=== PATIENT | female | born 1960 | race Hispanic/Latino ===

== ENCOUNTER 2017-09-02 18:24 | Inpatient (IN) | payer MEDICARE, OTHER ==
[2017-09-02 18:38] VITALS: BMI 25.4
[2017-09-02] MEDS ORDERED: Sodium Chloride 0.9% 500 ML IV STA (18:38)
--- NOTE | 2017-09-02 18:38 | ED PDOC ---
Arrival/HPI - General Chief Complaint: Altered Mental Status Time Seen by Provider: 09/02/17 18:33 Historian: EMS, Other (Roommate) EM Caveat: Altered Mental Status - History of Present Illness Narrative History of Present Illness (Text): 09/02/17 18:35 Patient is a 57 year old female who was brought to the emergency department by EMS for altered mental status. Patient is currently a poor historian and history is provided by EMS and patient's roommate, Katherine?. Roommate reports last witnessing patient at her baseline self yesterday morning. Roommate heard some moaning and groaning yesterday at 17:00, but thought patient was having a toothache and left her be. This morning patient was found still in bed with occasional moaning. In the afternoon patient was found on the floor, altered, and not herself. EMS arrived to the patient's sitting on the floor, and found her to be behaving/acting strangely, picking at wire, and exhibiting nonsensical behavior. She was also found to have low BP (80/40s). Patient is currently only oriented to her name and is unable to provide further information. She is brought to the emergency department for further evaluation. NO pain, no sob, ? vomiting is noted; no gross bleeding is noted at pt's home as per EMS report + slurr speech noted from patient PCP: Dr wilson pt lives with her roommate - Katherine pt is right hand dominate Time/Duration: Prior to Arrival Symptom Onset: Sudden Symptom Course: Unchanged Activities at Onset: Rest Context: Home Past Medical History - Provider Review Nursing Documentation Reviewed: Yes - Travel History Have you recently traveled outside [place] w/in the past 3 mons?: No - Past History Past History: Non-Contributing - Infectious Disease Hx of Infectious Diseases: None - Tetanus Immunization Tetanus Immunization: Unknown - Reproductive Menopause: Yes Currently : No - Cardiac Hx Pacemaker: No - Neurological Hx Dizziness: Yes Hx Paralysis: No - Hematological/Oncological Hx Blood Transfusions: No - Musculoskeletal/Rheumatological Hx Musculoskeletal Disorders: No - Psychiatric Hx Anxiety: Yes Hx Depression: Yes Hx Substance Use: No - Surgical History Other/Comment: fibroid tumor removal. - Anesthesia Hx Anesthesia: Yes Hx Anesthesia Reactions: No Hx Malignant Hyperthermia: No - Suicidal Assessment Feels Threatened In Home Enviroment: No Family/Social History - Physician Review Nursing Documentation Reviewed: Yes Family/Social History: No Known Family HX Smoking Status: Never Smoked Hx Alcohol Use: No Hx Substance Use: No Hx Substance Use Treatment: No Allergies/Home Meds Allergies/Adverse Reactions: Allergies latex Allergy (Verified 02/28/16 11:46) SWELLING Home Medications: Home Meds Medication Instructions Recorded Confirmed Pravastatin Sodium [Pravastatin] 20 mg PO DAILY 01/12/14 08/24/14 QUEtiapine [SEROquel] 50 mg PO DAILY 01/12/14 08/24/14 Venlafaxine [Effexor-XR] 100 mg PO DAILY 02/28/16 02/28/16 clonazePAM [clonAZEPAM] 1 mg PO BID 02/28/16 02/28/16 Review of Systems - Review of Systems Systems not reviewed;Unavailable: Altered Mental Status Constitutional: Fatigue. absent: Fevers Eyes: Normal ENT: Normal Respiratory: absent: SOB Cardiovascular: absent: Chest Pain Gastrointestinal: Vomiting Genitourinary Female: Normal Neurological: Speech Changes, Other (AMS; slurr speech) Physical Exam - Physical Exam Narrative Physical Exam (Text): 09/02/17 18:44 General: alert/awake, GCS = 15, oriented x 2 (not to date/time), resting in bed , uncomfortable, cooperative, interactive; NAD (not to pain); disheveled, noted dry vomitus on her hair; + smell of UTI Head: NC/AT; bi-temporal wasting EYE: PERRLA, EOMI, sclera anicteric, no nystagmus, no photophobia; visual field intact b/l Facial: WNL Oral: uvula/tongue are midline, no exudate/lesions, no drooling/stridor, no dysphonia; poor dentitions; DRY oral mucosa NECK: intact ROM, no midline tenderness, no nuchal rigidity, no meningeal signs ; no step off Chest: CTA b/l, no w/r/r; no tachypenia, no accessory muscle use noted Cardiac: +S1, +S2, no m/r/r, no tachycardia Abdominal: +BS, soft/nd/nt, well nourished patient; no masses/rebound/guarding/ rigidity; no chung's sign, no mcburney's point tenderness Extremities: intact ROM, strength 5/5 grossly intact in all limbs, neurovasc intact b/l; + ambulatory; reflex +2/2 BACK: no step off, no midline tenderness, NO crepitus, no gross deformities noted; Intact ROM SKIN: cap refill ~ 1 sec, no ulcerations, no petechiae, no rashes; + pallor NEURO: CNII-XII WNL, no facial asymmetries, + slurr speech, oriented x 2 Psych: normal affect; follows command with ease Physical Exam Limitations: Altered Mental Status Vital Signs Reviewed: Yes Vital Signs Temp Pulse Resp BP Pulse Ox 09/02/17 19:06 97.3 F L 88 18 141/78 96 Temperature: Hypothermic Blood Pressure: Hypertensive Pulse: Regular Respiratory Rate: Normal Appearance: Positive for: Ill-Appearing, Unkept, Uncomfortable Mental Status: Positive for: other (alert/awake, Oriented x 2 (not to date/time) ) Finger Stick Blood Glucose: 109 - Systems Exam Head: Present: Atraumatic, Normocephalic Medical Decision Making ED Course and Treatment: 09/02/17 18:36 Impression: Patient is a 57 year old female who was brought to the emergency department by EMS for further evaluation of her altered mental status. Differential Diagnosis included but are not limited to: metabolic encephalopathy; CVA vs TIA; weakness; dehydration; infection; rhabdo Plan: --CTA of head and neck --Head CT without contrast --Chest X-ray --EKG --labs --cardiac enzyme --IV fluids --Zofran -- Reassess and disposition Prior Visits: Notes and results from previous visits were reviewed. Progress Notes: 09/02/17 18:32 Code Stroke Alert called/activated 09/02/17 18:34 Discussed case with regarding patient's medical presentation. Suggest that patient most likely has a non-neurologic caused pathology. Will withhold TPA until CT is obtained and will continue to monitor. 09/02/17 19:32 contacted me regarding and is made aware of initial diagnostic lab results including CT. Patient IS NOT a candidate for TPA given symptoms are greater than 24 hours. Toxic metabolic encephalopathy instead of TIA or CVA as primary diagnosis. Will continue to monitor patient as patient is admitted to the hospital. 09/02/17 19:45 Paging . Awaiting response. 09/02/17 20:06 Discussed case with who is made aware and agrees with emergency department management. agrees to admission of patient to telemetry floor. 09/02/17 2030 pt remained at baseline currently, oriented x 2 pt/roommate are made aware of pt's medical results agrees with admission Re-evaluation Time: 20:00 Reassessment Condition: Improving,but remains with symptoms - Critical Care Critical Care Minutes: 60 minutes Critical Care Time: Excluding Proc Time Narrative Critical Care (Text): 09/02/17 21:16 critical care time: 60min, excluding procedure time, excluding time teaching residents/students/mid-level providers; including initial eval/diagnosis, diagnostic interpretation, re-eval, consultations, final disposition - Lab Interpretations Lab Results: 09/02/17 18:46 09/02/17 18:46 Lab Results 09/02/17 20:04: Blood Type B POSITIVE, Antibody Screen Negative, BBK History Checked Patient has bt 09/02/17 19:45: pO2 67 H, VBG pH 7.30 L, VBG pCO2 42.0, VBG HCO3 20.7 L, VBG Total CO2 22.0, VBG O2 Sat (Calc) 95.7 H, VBG Base Excess -5.5 L, VBG Potassium 3.8, Glucose 102, Lactate 2.8 H, FiO2 21.0, Sodium 141.0, Chloride 111.0 H, Venous Blood Potassium 3.8 09/02/17 18:46: Salicylates < 1 L, Acetaminophen < 10.0 L 09/02/17 18:46: TSH 3rd Generation 1.87 09/02/17 18:46: Ammonia < 9 L 09/02/17 18:46: Sodium 147, Potassium 4.1, Chloride 107, Carbon Dioxide 22, Anion Gap 22 H, BUN 17, Creatinine 0.9, Est GFR ( Amer) > 60, Est GFR ( Non-Af Amer) > 60, Random Glucose 107, Calcium 9.5, Total Bilirubin 0.2, AST 76 H, ALT 32, Alkaline Phosphatase 83, Total Creatine Kinase 1971 H, CK-MB (CK-2) 30.3 H, CK-MB (CK-2) % 1.5 L, Troponin I < 0.01, NT-Pro-B Natriuret Pep 121, Total Protein 7.6, Albumin 4.2, Globulin 3.4, Albumin/Globulin Ratio 1.3, Triglycerides 56, Cholesterol 133, LDL Cholesterol Direct 44, HDL Cholesterol 70 H 09/02/17 18:46: PT 12.6 H, INR 1.10 H, APTT 33.3 09/02/17 18:46: WBC 19.7 H D, RBC 4.23, Hgb 10.8 L, Hct 33.9 L, MCV 80.1, MCH 25.5, MCHC 31.9, RDW 14.2, Plt Count 256, MPV 10.7, Gran % 93.3 H, Lymph % (Auto ) 2.2 L, [place] % (Auto) 4.2, Eos % (Auto) 0.2 L, Baso % (Auto) 0.1, Gran # 18.36 H, Lymph # (Auto) 0.4 L, [place] # (Auto) 0.8 H, Eos # (Auto) 0.0, Baso # (Auto) 0.02, Neutrophils % (Manual) 90 H, Band Neutrophils % 5 H, Lymphocytes % (Manual ) 2 L, Monocytes % (Manual) 3, Platelet Evaluation Normal I have reviewed the lab results: Yes Interpretation: Abnormal lab values (elevated WBCs, lactic acid; Total CK) - RAD Interpretation Narrative RAD Interpretations (Text): 09/02/17 19:58 Portable chest X-ray shows poor respiratory effort rotated. Questionable pulmonary vascular congestion. Pelvis X-ray shows no acute fractures or dislocations. 09/02/17 CT Head Without Intravenous Contrast: FINDINGS: Brain: Mild volume loss is seen in keeping with age. Mild decrease in attenuation of the periventricular white matter likely related to small vessel ischemic change. The brain otherwise with normal chino-white matter differentiation, demonstrating no edema, mass effect, acute hemorrhage, or focal mass. Ventricles: Unremarkable. No ventriculomegaly. Bones/joints: Unremarkable. No acute fracture. Soft tissues: Unremarkable. Sinuses: Unremarkable as visualized. No acute sinusitis. Mastoid air cells: Unremarkable as visualized. No mastoid effusion. IMPRESSION: There is mild atrophy and chronic white matter ischemic changes, with no evidence of an acute intracranial abnormality. Dictated and Authenticated by: Vish Boggs MD Radiology Orders: 09/02/17 18:36 CTA HEAD/NECK CODE STROKE [CT] Stat HEAD W/O (CODE STROKE) [CT] Stat CHEST PORTABLE [RAD] Stat 09/02/17 18:39 PELVIS ONE VIEW [RAD] Stat Hospital Clinic Assistant: ED Physician, Radiologist - EKG Interpretation EKG Interpretation (Text): 09/02/17 21:19 NSR at 95 bpm, normal axis, no ectopy, diffuse low voltage inferior leads, inverted T in leads V1-4, no st changes, ABNL EKG; unchanged compare with old ekg 08/2014 Interpreted by ED Physician: Yes Type: 12 lead EKG Comparison: Similar to previous EKG - Medication Orders Current Medication Orders: Sodium Chloride (Sodium Chloride 0.9%) 1,000 mls @ 100 mls/hr IV .Q10H [facility] Last Admin: 09/02/17 20:19 Dose: 100 mls/hr eMAR Start Stop Document 09/02/17 20:19 SF (Rec: 09/02/17 20:19 [facility]-[id number]) Intravenous Solution Start Date 09/02/17 Start Time 20:19 Discontinued Medications Sodium Chloride (Sodium Chloride 0.9%) 500 mls @ 999 mls/hr IV .Q31M STA Stop: 09/02/17 19:08 Last Admin: 09/02/17 20:22 Dose: 999 mls/hr eMAR Start Stop Document 09/02/17 20:22 SF (Rec: 09/02/17 20:22 [facility] [place]-[id number]) Intravenous Solution Start Date 09/02/17 Start Time 20:22 End Date 09/02/17 End time 20:52 Total Infusion Time 30 Ceftriaxone Sodium (Rocephin 1 Gram Ivpb) 1 gm in 100 mls @ 200 mls/hr IVPB STAT STA PRN Reason: Protocol Stop: 09/02/17 20:06 Last Admin: 09/02/17 19:59 Dose: 200 mls/hr eMAR Start Stop Document 09/02/17 19:59 CNR (Rec: 09/02/17 19:59 CNR [id number]) Intravenous Solution Start Date 09/02/17 Start Time 19:59 End Date 09/02/17 End time 20:30 Total Infusion Time 31 Sodium Chloride (Sodium Chloride 0.9%) 1,000 mls @ 999 mls/hr IV .Q1H1M STA Stop: 09/02/17 20:45 Last Admin: 09/02/17 20:02 Dose: 999 mls/hr eMAR Start Stop Document 09/02/17 20:02 CNR (Rec: 09/02/17 20:02 CNR [id number]) Intravenous Solution Start Date 09/02/17 Start Time 20:02 Ondansetron HCl (Zofran Inj) 4 mg IVP STAT STA Stop: 09/02/17 18:42 Last Admin: 09/02/17 20:02 Dose: 4 mg IVP Administration Document 09/02/17 20:02 CNR (Rec: 09/02/17 20:02 CNR [id number]) Charges for Administration # of IVP Administrations 1 NIHSS Scale ([place]) Time Performed: 18:55 - How Severe is the Stoke Baseline Level of Consciousness: 1=Drowsy LOC to Questions: 0=Both comments correct LOC to commands: 0=Obeys both correctly Best Gaze: 0=Normal Visual: 0=No visual loss Facial: 0=Normal Motor Arm - Left: 1=Drift noted before 10 sec Motor Arm - Right: 1=Drift noted before 10 sec Motor Leg - Left: 1=Drift before 5 sec Motor Leg - Right: 1=Drift before 5 sec Limb Ataxia: 0=Absent Sensory: 0=Normal Best Language: 1=Mild to moderate aphasia Dysarthia: 1=Mild to moderate slurring Extinction & Inattention (Neglect): 0=Normal, no object Score: 7 Risk Level: Mod Stroke Risk - Scribe Statement The provider has reviewed the documentation as recorded by the Scribhailey Dejesus Provider Scribe Attestation: All medical record entries made by the Scribe were at my direction and personally dictated by me. I have reviewed the chart and agree that the record accurately reflects my personal performance of the history, physical exam, medical decision making, and the department course for this patient. I have also personally directed, reviewed, and agree with the discharge instructions and disposition. Disposition/Present on Arrival - Present on Arrival Any Indicators Present on Arrival: No History of DVT/PE: No History of Uncontrolled Diabetes: No Urinary Catheter: No History of Decub. Ulcer: No History Surgical Site Infection Following: None - Disposition Have Diagnosis and Disposition been Completed?: Yes Diagnosis: Altered mental status, unspecified, UTI (urinary tract infection), Dehydration , Rhabdomyolysis, Fall, Encephalopathy Disposition: HOSPITALIZED Disposition Time: 20:30 Patient Plan: Admission, Telemetry Condition: STABLE
[2017-09-02] MEDS ORDERED: Iohexol 350 MG/100 ML VIAL ONE (18:44)
[2017-09-02 18:53] LABS: BASO # 0.02 K/mm3 (0.0-2.0); BASO % 0.1 % (0.0-3.0); EOS % 0.2 % (1.5-5.0); GRAN # 18.36 (1.4-6.5); GRAN % 93.3 % (50.0-68.0); HEMOGLOBIN 10.8 g/dL (12.0-16.0); LYMPH # 0.4 (1.2-3.4); LYMPH % 2.2 % (22.0-35.0); MEAN CELL VOLUME 80.1 fl (80.0-105.0); MEAN CORPUSCULAR HEMOGLOBIN 25.5 pg (25.0-35.0); MEAN CORPUSCULAR HGB CONC 31.9 g/dl (31.0-37.0); MEAN PLATELET VOLUME 10.7 fl (7.0-11.0); MONO # 0.8 (0.1-0.6); MONO % 4.2 % (1.0-6.0); PLATELET COUNT 256 10^3/uL (120.0-450.0); RBC 4.23 10^6/uL (3.5-6.1); RED CELL DISTRIBUTION WIDTH 14.2 % (11.5-14.5); WHITE BLOOD COUNT 19.7 10^3/ul (4.5-11.0)
[2017-09-02 19:02] LABS: INR 1.1 (0.93-1.08); PARTIAL THROMBOPLASTIN TIME 33.3 Seconds (25.1-36.5); PROTHROMBIN TIME 12.6 SECONDS (9.4-12.5)
--- NOTE | 2017-09-02 19:02 | CT ---
PROCEDURE: CT HEAD WITHOUT CONTRAST. HISTORY: Code Stroke COMPARISON: None available. TECHNIQUE: Axial computed tomography images were obtained through the head/brain without intravenous contrast. Radiation dose: Total exam DLP = 942.21 mGy-cm. This CT exam was performed using one or more of the following dose reduction techniques: Automated exposure control, adjustment of the mA and/or kV according to patient size, and/or use of iterative reconstruction technique. FINDINGS: HEMORRHAGE: No intracranial hemorrhage. BRAIN: Normal chino-white matter differentiation and density are appreciated throughout the cerebrum and cerebellum with the brainstem appearing unremarkable as well. There is no mass effect. There is no suspicious extra-axial fluid collection and the midline brain anatomy appears diffusely unremarkable. No signal change para CTA 08/24/2014. VENTRICLES: Unremarkable. No hydrocephalus. CALVARIUM: Unremarkable. PARANASAL SINUSES: Unremarkable as visualized. No significant inflammatory changes. MASTOID AIR CELLS: Unremarkable as visualized. No inflammatory changes. OTHER FINDINGS: None. IMPRESSION: Unremarkable noncontrast head CT. Follow-up CT or MRI are available if clinically warranted. Findings discussed with Dr. Parkinson 09/02/2017 6:57 p.m. with written down and read back verification.
[2017-09-02 19:10] LABS: ALB/GLOB RATIO 1.3 (1.1-1.8); ALBUMIN 4.2 g/dL (3.0-4.8); ALT/SGPT 32 U/L (7-56); AST/SGOT 76 U/L (14-36); BLOOD UREA NITROGEN 17 mg/dL (7-21); CALCIUM 9.5 mg/dL (8.4-10.5); GFR AFRICAN-AMERICAN > 60; GFR NON-AFRICAN AMERICAN > 60; HDL CHOLESTEROL 70 mg/dL (29-60)
[2017-09-02 19:11] LABS: ACETAMINOPHEN < 10.0 ug/ml (10.0-20.0); SALICYLATE < 1 mg/dL (2.0-20.0)
[2017-09-02 19:21] LABS: LDL CHOLESTEROL 44 mg/dL (0-129)
[2017-09-02 19:24] LABS: B-TYPE NATRIURETIC PEPTIDE 121 pg/mL (0-450); TROPONIN I < 0.01 ng/mL
[2017-09-02] MEDS ORDERED: cefTRIAXone 1 gm 1 GM/100 ML BAG IVPB STA (19:37)
[2017-09-02] MEDS ORDERED: Sodium Chloride 0.9% 1,000 ML IV STA (19:45)
[2017-09-02 19:56] LABS: VENOUS BLOOD GAS BASE EXCESS -5.5 mmol/L (0.0-2.0); VENOUS BLOOD GAS PO2 67 mm/Hg (30-55)
[2017-09-02 20:10] LABS: BAND 5 % (0-2); LYMPHOCYTE 2 % (22.0-35.0); MONOCYTE 3 % (1.0-6.0); NEUTROPHIL 90 % (50.0-70.0)
[2017-09-02 20:11] LABS: PLATELET ESTIMATE NORMAL (NORMAL)
[2017-09-02] MEDS: Sodium Chloride 0.9% 1,000 ML IV SCH (20:19)
[2017-09-02 20:34] LABS: CK MB% 1.5 % (2.5-3.0); CK-MB 30.3 ng/mL (0.0-3.6)
[2017-09-02] MEDS: Cefepime 1gm in NS 100ml 1 GM/100 ML BAG IVPB SCH (22:10)
[2017-09-02] MEDS ORDERED: DiphenhydrAMINE 50 mg/ml Inj ONE (23:42)
[2017-09-02] MEDS ORDERED: DiphenhydrAMINE 50 mg/ml Inj IVP STA (23:47)
[2017-09-03 00:10] LABS: VENOUS BLOOD GAS PO2 29 mm/Hg (30-55); VENOUS BLOOD PH 7.29 (7.32-7.43)
[2017-09-03 01:02] LABS: PHENCYCLIDINE, UR NEGATIVE (NEGATIVE)
[2017-09-03 01:13] LABS: URINE BILIRUBIN NEGATIVE (NEGATIVE); URINE BLOOD NEGATIVE (NEGATIVE); URINE GLUCOSE (UA) NEGATIVE (NEGATIVE); URINE LEUKOCYTE ESTERASE NEGATIVE Leu/uL (NEGATIVE); URINE PROTEIN TRACE mg/dL (<30 mg/dL); URINE UROBILINOGEN 0.2 E.U./dL (<1 E.U./dL)
[2017-09-03 01:14] LABS: URINE COLOR YELLOW (YELLOW)
[2017-09-03 01:15] LABS: URINE APPEARANCE SLIGHT-CLOUDY (CLEAR)
[2017-09-03 01:25] LABS: BARBITURATES, UR NEGATIVE (NEGATIVE); BENZODIAZEPINES, UR POSITIVE (NEGATIVE); OPIATES, UR NEGATIVE (NEGATIVE)
[2017-09-03 01:29] LABS: URINE RBC NEGATIVE /hpf (0-2); URINE WBC NEGATIVE /hpf (0-6)
[2017-09-03 01:30] LABS: URINE BACTERIA MOD (NEG)
[2017-09-03] MEDS: Pantoprazole 40 mg EC Tab PO SCH (06:06)
[2017-09-03 07:11] LABS: BASO # 0.03 K/mm3 (0.0-2.0); BASO % 0.2 % (0.0-3.0); EOS # 0.3 (0.0-0.7); EOS % 1.4 % (1.5-5.0); GRAN # 16.38 (1.4-6.5); GRAN % 89.3 % (50.0-68.0); HEMOGLOBIN 9.1 g/dL (12.0-16.0); LYMPH # 0.9 (1.2-3.4); LYMPH % 4.9 % (22.0-35.0); MEAN CELL VOLUME 79.9 fl (80.0-105.0); MEAN CORPUSCULAR HEMOGLOBIN 25.3 pg (25.0-35.0); MEAN CORPUSCULAR HGB CONC 31.7 g/dl (31.0-37.0); MEAN PLATELET VOLUME 10.7 fl (7.0-11.0); MONO # 0.8 (0.1-0.6); MONO % 4.2 % (1.0-6.0); RBC 3.59 10^6/uL (3.5-6.1); RED CELL DISTRIBUTION WIDTH 14.2 % (11.5-14.5); WHITE BLOOD COUNT 18.3 10^3/ul (4.5-11.0)
[2017-09-03 07:36] LABS: ALB/GLOB RATIO 1.1 (1.1-1.8); ALBUMIN 3.4 g/dL (3.0-4.8); ALT/SGPT 33 U/L (7-56); AST/SGOT 62 U/L (14-36); BLOOD UREA NITROGEN 13 mg/dL (7-21); CALCIUM 8.5 mg/dL (8.4-10.5); GFR AFRICAN-AMERICAN > 60; GFR NON-AFRICAN AMERICAN > 60
--- NOTE | 2017-09-03 08:38 | HP ---
HISTORY OF PRESENT ILLNESS: The patient is 57 years old, who was brought to emergency room by ambulance when her hogshead dumper who saw her last night and in good state of health, found her confused, disoriented, and she was found on the floor. She called the ambulance and was brought to emergency room. She has not been feeling well for the last few days and poor appetite. Does complain of having low-grade fever, decreased appetite. PAST MEDICAL HISTORY: 1. Significant for anxiety disorder. 2. Hyperlipidemia. 3. Chronic back pain. 4. Left hepatic cyst. The patient is done by Dr. Bocanegra in 12/2013 and was found to be normal. ALLERGIES: SHE IS ALLERGIC TO LATEX. MEDICATIONS AT HOME: She is on Klonopin 1 mg twice a day, Effexor 100 mg daily, Seroquel 50 mg daily, pravastatin 20 mg daily, naproxen 500 mg twice a day, Tylenol with Codeine. SOCIAL HISTORY: The patient lives by herself. History of smoking in the past. PHYSICAL EXAMINATION GENERAL: On examination, she is awake, alert, but confused. VITAL SIGNS: She is afebrile, pulse 80, respirations 19, blood pressure 110/63. LUNGS: Bilateral fair airflow. No rhonchi or crackle. HEART: S1 and S2 audible. No murmur. ABDOMEN: Soft. Nontender. No rebound. No guarding. NEUROLOGICAL: The patient is awake and alert, but confused, answers simple questions. LABORATORY EXAM: WBC is 19.7, hemoglobin 10.8, hematocrit 33.9, platelet 256. PT 12.6, INR 1.10. Chemistry: Sodium 147, potassium 4.1, chloride 107, CO2 of 22, BUN 17, creatinine 0.9, blood sugar 107. AST 76, ALT 62, ammonia less than . CPK is 1971, MB is 1.5. Salicylate less than 1. Acetaminophen less than . . ASSESSMENT AND PLAN: 1. Sepsis with leukocytosis, probably urinary tract infection. 2. Rhabdomyolysis. 3. Status post fall. 4. History of seizure disorder. 5. Hyperlipidemia. 6. Toxic metabolic encephalopathy. PLAN: We will start the patient on IV fluid, start IV antibiotic, follow blood culture and urine culture and we will follow up electrolytes. Follow the patient in a.m. El Salazar MD [facility] # [id number]
[2017-09-03] MEDS: Cefepime 1gm in NS 100ml 1 GM/100 ML BAG IVPB SCH ×2 (09:05→21:43)
[2017-09-03] MEDS ORDERED: Venlafaxine 37.5 mg ER Cap PO SCH (10:00)
[2017-09-03 12:40] LABS: HDL CHOLESTEROL 59 mg/dL (29-60)
[2017-09-03 12:55] LABS: LDL CHOLESTEROL 34 mg/dL (0-129)
--- NOTE | 2017-09-03 12:57 | RAD ---
HISTORY: Code Stroke COMPARISON: 12/27/2013 FINDINGS: LUNGS: No consolidation. Lung volumes low-normal Limited exam study rotated towards the right PLEURA: No significant pleural effusion identified, no pneumothorax apparent. CARDIOVASCULAR: Heart size within normal limits Minimal central pulmonary vascular congestion OSSEOUS STRUCTURES: No significant abnormalities. VISUALIZED UPPER ABDOMEN: Normal. OTHER FINDINGS: None. IMPRESSION: Minimal central pulmonary vascular congestion -an interval change
--- NOTE | 2017-09-03 13:03 | RAD ---
PROCEDURE: Radiographs of the pelvis. HISTORY: AMS, fall? COMPARISON: CT abdomen and pelvis 09/08/2015 FINDINGS: BONES: Pelvic Bones: Right sided sacral 2 cm bone island 12 mm bone island right iliac bone - unchanged the prior CT study Hips: Limited evaluation single view bilateral superolateral hip joint space narrowing JOINTS: Sacroiliac Joints: Unremarkable. Pubic Symphysis: Unremarkable. OTHER FINDINGS: Right sided Stool retention. IMPRESSION: Right sacral and right iliac bone bone islands benign-appearing stable with CT 09/08/2015 No lytic lesion or gross fracture seen. Portion of the hips is somewhat limited on this single pelvic view. At minimal bilateral osteoarthrosis is suggested.
--- NOTE | 2017-09-03 13:55 | CP.PCM.CON ---
History of Present Illness - History of Present Illness History of Present Illness: Mrs. Ferrera is a 57-year-old woman with a past medical history of seizure disorder, anxiety, who was found down by her roommate. She was brought to the ED. Labs showed leukocytosis, UTI, and elevated CK levels. She was hydrated and treated for possible infection. Today, she is much more alert, non-focal, fluent in speech, but remains somewhat confused. CT scan of the head did not show any acute findings. Review of Systems - Review of Systems All systems: reviewed and no additional remarkable complaints except Past Patient History - Infectious Disease Hx of Infectious Diseases: None - Tetanus Immunizations Tetanus Immunization: Unknown - Past Social History Smoking Status: Unknown If Ever Smoked - CARDIAC Hx Pacemaker: No - NEUROLOGICAL Hx Dizziness: Yes Hx Paralysis: No - HEMATOLOGICAL/ONCOLOGICAL Hx Blood Transfusions: No - MUSCULOSKELETAL/RHEUMATOLOGICAL Hx Falls: Yes (poor historian) - PSYCHIATRIC Hx Anxiety: Yes Hx Depression: Yes Hx Substance Use: No - SURGICAL HISTORY Other/Comment: unable to obtain, pt's mental status is altered. Poor historian - ANESTHESIA Hx Anesthesia: Yes Hx Anesthesia Reactions: No Hx Malignant Hyperthermia: No Meds Allergies/Adverse Reactions: Allergies Allergy/AdvReac Type Severity Reaction Status Date / Time latex Allergy SWELLING Verified 02/28/16 11:46 - Medications Medications: Current Medications Acetaminophen (Tylenol 325mg Tab) 650 mg PO Q6H PRN PRN Reason: Fever >100.4 F Atorvastatin Calcium (Lipitor) 40 mg PO DIN NGUYEN Clonazepam (Klonopin) 1 mg PO TID NGUYEN PRN Reason: Protocol Sodium Chloride (Sodium Chloride 0.9%) 1,000 mls @ 100 mls/hr IV .Q10H NGUYEN Last Admin: 09/02/17 20:19 Dose: 100 mls/hr Cefepime HCl (Maxipime 1gm) 1 gm in 100 mls @ 100 mls/hr IVPB Q12 NGUYEN PRN Reason: Protocol Last Admin: 09/03/17 09:05 Dose: 100 mls/hr Pantoprazole Sodium (Protonix Ec Tab) 40 mg PO 0630 NGUYEN Last Admin: 09/03/17 06:06 Dose: Not Given Quetiapine Fumarate (Seroquel) 300 mg PO DAILY NGUYEN PRN Reason: Protocol Last Admin: 09/03/17 11:37 Dose: 300 mg Venlafaxine HCl (Effexor) 75 mg PO BID [facility] Physical Exam - Neurological Exam Neurological exam: Abnormal Gait, Alert, Altered, CN II-XII Intact, Reflexes Normal Additional comments: NIHSS = 0 Results - Vital Signs Recent Vital Signs: Last Vital Signs Temp 97.5 F L 09/03/17 11:49 Pulse 105 H 09/03/17 11:49 Resp 24 09/03/17 11:49 BP 131/67 09/03/17 11:49 Pulse Ox 95 09/03/17 06:00 - Labs Result Diagrams: 09/03/17 06:30 09/03/17 06:30 Labs: Laboratory Results - last 24 hr 09/02/17 09/03/17 09/03/17 23:45 00:18 00:18 WBC RBC Hgb Hct MCV MCH MCHC RDW Plt Count MPV Gran % Lymph % (Auto) [place] % (Auto) Eos % (Auto) Baso % (Auto) Gran # Lymph # (Auto) [place] # (Auto) Eos # (Auto) Baso # (Auto) pO2 29 L VBG pH 7.29 L VBG pCO2 45.0 VBG HCO3 21.6 VBG Total CO2 23.0 VBG O2 Sat (Calc) 59.5 VBG Base Excess -5.0 L VBG Potassium 3.5 L Sodium 143.0 Chloride 116.0 H Glucose 86 Lactate 1.2 FiO2 21.0 Potassium Carbon Dioxide Anion Gap BUN Creatinine Est GFR ( Amer) Est GFR (Non-Af Amer) POC Glucose (mg/dL) Random Glucose Calcium Total Bilirubin AST ALT Alkaline Phosphatase Total Protein Albumin Globulin Albumin/Globulin Ratio Triglycerides Cholesterol LDL Cholesterol Direct HDL Cholesterol Venous Blood Potassium 3.5 L Urine Color Yellow Urine Appearance Slight-cloudy Urine pH 6.0 Ur Specific [place] >= 1.030 Urine Protein Trace H Urine Glucose (UA) Negative Urine Ketones Negative Urine Blood Negative Urine Nitrate Negative Urine Bilirubin Negative Urine Urobilinogen 0.2 Ur Leukocyte Esterase Negative Urine RBC Negative Urine WBC Negative Ur Epithelial Cells 3 - 4 Urine Bacteria Mod Urine Other Mucus Urine Opiates Screen Negative Urine Methadone Screen Negative Ur Barbiturates Screen Negative Ur Phencyclidine Scrn Negative Ur Amphetamines Screen Negative U Benzodiazepines Scrn Positive H U Oth Cocaine Metabols Negative U Cannabinoids Screen Negative 09/03/17 09/03/17 09/03/17 06:30 06:30 06:30 WBC 18.3 H RBC 3.59 Hgb 9.1 L Hct 28.7 L MCV 79.9 L MCH 25.3 MCHC 31.7 RDW 14.2 Plt Count 231 MPV 10.7 Gran % 89.3 H Lymph % (Auto) 4.9 L [place] % (Auto) 4.2 Eos % (Auto) 1.4 L Baso % (Auto) 0.2 Gran # 16.38 H Lymph # (Auto) 0.9 L [place] # (Auto) 0.8 H Eos # (Auto) 0.3 Baso # (Auto) 0.03 pO2 VBG pH VBG pCO2 VBG HCO3 VBG Total CO2 VBG O2 Sat (Calc) VBG Base Excess VBG Potassium Sodium 147 Chloride 113 H Glucose Lactate FiO2 Potassium 3.6 Carbon Dioxide 23 Anion Gap 15 BUN 13 Creatinine 0.8 Est GFR ( Amer) > 60 Est GFR (Non-Af Amer) > 60 POC Glucose (mg/dL) Random Glucose 80 Calcium 8.5 Total Bilirubin 0.3 AST 62 H ALT 33 Alkaline Phosphatase 71 Total Protein 6.5 Albumin 3.4 Globulin 3.0 Albumin/Globulin Ratio 1.1 Triglycerides 51 Cholesterol 117 L LDL Cholesterol Direct 34 HDL Cholesterol 59 Venous Blood Potassium Urine Color Urine Appearance Urine pH Ur Specific [place] Urine Protein Urine Glucose (UA) Urine Ketones Urine Blood Urine Nitrate Urine Bilirubin Urine Urobilinogen Ur Leukocyte Esterase Urine RBC Urine WBC Ur Epithelial Cells Urine Bacteria Urine Other Urine Opiates Screen Urine Methadone Screen Ur Barbiturates Screen Ur Phencyclidine Scrn Ur Amphetamines Screen U Benzodiazepines Scrn U Oth Cocaine Metabols U Cannabinoids Screen 09/03/17 07:06 WBC RBC Hgb Hct MCV MCH MCHC RDW Plt Count MPV Gran % Lymph % (Auto) [place] % (Auto) Eos % (Auto) Baso % (Auto) Gran # Lymph # (Auto) [place] # (Auto) Eos # (Auto) Baso # (Auto) pO2 VBG pH VBG pCO2 VBG HCO3 VBG Total CO2 VBG O2 Sat (Calc) VBG Base Excess VBG Potassium Sodium Chloride Glucose Lactate FiO2 Potassium Carbon Dioxide Anion Gap BUN Creatinine Est GFR ( Amer) Est GFR (Non-Af Amer) POC Glucose (mg/dL) 73 Random Glucose Calcium Total Bilirubin AST ALT Alkaline Phosphatase Total Protein Albumin Globulin Albumin/Globulin Ratio Triglycerides Cholesterol LDL Cholesterol Direct HDL Cholesterol Venous Blood Potassium Urine Color Urine Appearance Urine pH Ur Specific [place] Urine Protein Urine Glucose (UA) Urine Ketones Urine Blood Urine Nitrate Urine Bilirubin Urine Urobilinogen Ur Leukocyte Esterase Urine RBC Urine WBC Ur Epithelial Cells Urine Bacteria Urine Other Urine Opiates Screen Urine Methadone Screen Ur Barbiturates Screen Ur Phencyclidine Scrn Ur Amphetamines Screen U Benzodiazepines Scrn U Oth Cocaine Metabols U Cannabinoids Screen Assessment & Plan (1) Toxic metabolic encephalopathy Assessment and Plan: Continue hydration, antibiotics, treatment of underlying metabolic derangements and supportive care. Consider EEG if the patient does not improve in mental status. Please re-consult if there is any concern of seizure like activity. The patient is currently on Klonapin 1 mg TID, which is likely for anxiety, but it is also suppressing seizure activity. If this were to be changed, consider starting Keppra 500 mg BID since she does have a history of seizures. Thank you. Status: Acute Priority: Medium
--- NOTE | 2017-09-03 18:17 | PN ---
DATE: 09/03/2017 SUBJECTIVE: The patient is 57 years old, seen and examined, awake and alert, but totally confused, disoriented, mumbles, does not make sense, pulling on her bed sheet, in the bed. OBJECTIVE: VITAL SIGNS: She is afebrile, pulse 105, respirations 24, blood pressure 131/67. LUNGS: Bilateral fair airflow. No rhonchi or crackle. HEART: S1 and S2 audible. ABDOMEN: Soft. Nontender. No rebound, no guarding. NEUROLOGIC: The patient is awake and alert, but confused, disoriented. LABORATORY EXAM: WBC is 18.3, hemoglobin 9.1, hematocrit 28.7, and platelets of 231. Chemistry: Sodium 147, potassium 3.6, chloride 113, CO2 of 23. BUN 13, creatinine 0.8. Blood sugar of 73. Blood cultures and urine cultures are pending. ASSESSMENT: 1. Altered mental status. Urine drug screen positive for opiates. 2. Leukocytosis, source unknown. 3. History of anxiety disorder. PLAN: We will continue the patient on current antibiotic. We will request for psych consult and also request for neuro evaluation and also will request for ID consult. We will follow up with the patient in the a.m. El Salazar MD
[2017-09-03] MEDS: Sodium Chloride 0.9% 1,000 ML IV SCH (21:05)
[2017-09-03] MEDS ORDERED: Dextrose 50% SYRINGE Inj (50 ml) IVP ONE (21:20)
[2017-09-04] MEDS: Sodium Chloride 0.9% 1,000 ML IV SCH ×2 (00:45→10:04)
[2017-09-04] MEDS: Pantoprazole 40 mg EC Tab PO SCH (06:08)
[2017-09-04 08:04] LABS: BASO # 0.05 K/mm3 (0.0-2.0); BASO % 0.2 % (0.0-3.0); EOS # 0.4 (0.0-0.7); EOS % 1.7 % (1.5-5.0); GRAN # 18.72 (1.4-6.5); GRAN % 88.1 % (50.0-68.0); HEMOGLOBIN 9.5 g/dL (12.0-16.0); LYMPH # 1.2 (1.2-3.4); LYMPH % 5.8 % (22.0-35.0); MEAN CELL VOLUME 79.5 fl (80.0-105.0); MEAN CORPUSCULAR HEMOGLOBIN 25.3 pg (25.0-35.0); MEAN CORPUSCULAR HGB CONC 31.8 g/dl (31.0-37.0); MEAN PLATELET VOLUME 10.5 fl (7.0-11.0); MONO # 0.9 (0.1-0.6); MONO % 4.2 % (1.0-6.0); RBC 3.76 10^6/uL (3.5-6.1); RED CELL DISTRIBUTION WIDTH 14.2 % (11.5-14.5); WHITE BLOOD COUNT 21.3 10^3/ul (4.5-11.0)
[2017-09-04 08:16] LABS: ALB/GLOB RATIO 1.1 (1.1-1.8); ALBUMIN 3.8 g/dL (3.0-4.8); ALT/SGPT 41 U/L (7-56); AST/SGOT 61 U/L (14-36); BLOOD UREA NITROGEN 11 mg/dL (7-21); CALCIUM 8.9 mg/dL (8.4-10.5); GFR AFRICAN-AMERICAN > 60; GFR NON-AFRICAN AMERICAN > 60
[2017-09-04 08:30] LABS: FREE T4 0.86 ng/dL (0.78-2.19)
[2017-09-04] MEDS: Cefepime 1gm in NS 100ml 1 GM/100 ML BAG IVPB SCH (10:03)
--- NOTE | 2017-09-04 12:38 | CP.PCM.CON ---
History of Present Illness - History of Present Illness History of Present Illness: 57 year old female with PMH of anxiety and depression, S/P fibroid removal came in to [facility] [place] she was brought in to [facility] [place] because of the patient was apparently noted to be on the floor and not behaving like herself. The patient currently is awake and alert but confused. Thre was note of loweblood pressure in the ED, but note of fevers. She was noted to have leukocytosis. It is unsure if the patient had seizures. Further ROS is unobtainable because of the patient's confusion. Infectious diseases consult is requested to further evaluate and manage. Review of Systems - Review of Systems All systems: reviewed and no additional remarkable complaints except (as per HPI ) Past Patient History - Infectious Disease Hx of Infectious Diseases: None - Tetanus Immunizations Tetanus Immunization: Unknown - Past Social History Smoking Status: Unknown If Ever Smoked - CARDIAC Hx Pacemaker: No - NEUROLOGICAL Hx Dizziness: Yes Hx Paralysis: No - HEMATOLOGICAL/ONCOLOGICAL Hx Blood Transfusions: No - MUSCULOSKELETAL/RHEUMATOLOGICAL Hx Falls: Yes (poor historian) - PSYCHIATRIC Hx Anxiety: Yes Hx Depression: Yes Hx Substance Use: No - SURGICAL HISTORY Other/Comment: unable to obtain, pt's mental status is altered. Poor historian - ANESTHESIA Hx Anesthesia: Yes Hx Anesthesia Reactions: No Hx Malignant Hyperthermia: No Meds Allergies/Adverse Reactions: Allergies Allergy/AdvReac Type Severity Reaction Status Date / Time latex Allergy SWELLING Verified 02/28/16 11:46 - Medications Medications: Current Medications Acetaminophen (Tylenol 325mg Tab) 650 mg PO Q6H PRN PRN Reason: Fever >100.4 F Atorvastatin Calcium (Lipitor) 40 mg PO DIN [facility] Last Admin: 09/03/17 17:44 Dose: 40 mg Clonazepam (Klonopin) 1 mg PO TID NGUYEN PRN Reason: Protocol Last Admin: 09/03/17 17:44 Dose: 1 mg Sodium Chloride (Sodium Chloride 0.9%) 1,000 mls @ 100 mls/hr IV .Q10H NGUYEN Last Admin: 09/02/17 20:19 Dose: 100 mls/hr Cefepime HCl (Maxipime 1gm) 1 gm in 100 mls @ 100 mls/hr IVPB Q12 NGUYEN PRN Reason: Protocol Last Admin: 09/03/17 09:05 Dose: 100 mls/hr Pantoprazole Sodium (Protonix Ec Tab) 40 mg PO 0630 [facility] Last Admin: 09/03/17 06:06 Dose: Not Given Quetiapine Fumarate (Seroquel) 300 mg PO DAILY [facility] PRN Reason: Protocol Last Admin: 09/03/17 11:37 Dose: 300 mg Venlafaxine HCl (Effexor) 75 mg PO BID [facility] Last Admin: 09/03/17 17:44 Dose: 75 mg Physical Exam - Constitutional Appears: Agitated, Chronically Ill - Head Exam Head Exam: NORMAL INSPECTION - ENT Exam ENT Exam: Mucous Membranes Moist - Neck Exam Neck exam: Negative for: Lymphadenopathy, Meningismus - Respiratory Exam Respiratory Exam: Decreased Breath Sounds - Cardiovascular Exam Cardiovascular Exam: +S1, +S2 - GI/Abdominal Exam GI & Abdominal Exam: Soft. absent: Tenderness Results - Vital Signs Recent Vital Signs: Last Vital Signs Temp 97.8 F 09/03/17 17:00 Pulse 106 H 09/03/17 17:00 Resp 22 09/03/17 17:00 BP 114/75 09/03/17 17:00 Pulse Ox 92 L 09/03/17 17:00 - Labs Result Diagrams: 09/04/17 07:30 09/04/17 07:30 Labs: Laboratory Results - last 24 hr 09/02/17 09/03/17 09/03/17 23:45 00:18 00:18 WBC RBC Hgb Hct MCV MCH MCHC RDW Plt Count MPV Gran % Lymph % (Auto) [place] % (Auto) Eos % (Auto) Baso % (Auto) Gran # Lymph # (Auto) [place] # (Auto) Eos # (Auto) Baso # (Auto) pO2 29 L VBG pH 7.29 L VBG pCO2 45.0 VBG HCO3 21.6 VBG Total CO2 23.0 VBG O2 Sat (Calc) 59.5 VBG Base Excess -5.0 L VBG Potassium 3.5 L Sodium 143.0 Chloride 116.0 H Glucose 86 Lactate 1.2 FiO2 21.0 Potassium Carbon Dioxide Anion Gap BUN Creatinine Est GFR ( Amer) Est GFR (Non-Af Amer) POC Glucose (mg/dL) Random Glucose Calcium Total Bilirubin AST ALT Alkaline Phosphatase Total Protein Albumin Globulin Albumin/Globulin Ratio Triglycerides Cholesterol LDL Cholesterol Direct HDL Cholesterol Venous Blood Potassium 3.5 L Urine Color Yellow Urine Appearance Slight-cloudy Urine pH 6.0 Ur Specific [place] >= 1.030 Urine Protein Trace H Urine Glucose (UA) Negative Urine Ketones Negative Urine Blood Negative Urine Nitrate Negative Urine Bilirubin Negative Urine Urobilinogen 0.2 Ur Leukocyte Esterase Negative Urine RBC Negative Urine WBC Negative Ur Epithelial Cells 3 - 4 Urine Bacteria Mod Urine Other Mucus Urine Opiates Screen Negative Urine Methadone Screen Negative Ur Barbiturates Screen Negative Ur Phencyclidine Scrn Negative Ur Amphetamines Screen Negative U Benzodiazepines Scrn Positive H U Oth Cocaine Metabols Negative U Cannabinoids Screen Negative 09/03/17 09/03/17 09/03/17 06:30 06:30 06:30 WBC 18.3 H RBC 3.59 Hgb 9.1 L Hct 28.7 L MCV 79.9 L MCH 25.3 MCHC 31.7 RDW 14.2 Plt Count 231 MPV 10.7 Gran % 89.3 H Lymph % (Auto) 4.9 L [place] % (Auto) 4.2 Eos % (Auto) 1.4 L Baso % (Auto) 0.2 Gran # 16.38 H Lymph # (Auto) 0.9 L [place] # (Auto) 0.8 H Eos # (Auto) 0.3 Baso # (Auto) 0.03 pO2 VBG pH VBG pCO2 VBG HCO3 VBG Total CO2 VBG O2 Sat (Calc) VBG Base Excess VBG Potassium Sodium 147 Chloride 113 H Glucose Lactate FiO2 Potassium 3.6 Carbon Dioxide 23 Anion Gap 15 BUN 13 Creatinine 0.8 Est GFR ( Amer) > 60 Est GFR (Non-Af Amer) > 60 POC Glucose (mg/dL) Random Glucose 80 Calcium 8.5 Total Bilirubin 0.3 AST 62 H ALT 33 Alkaline Phosphatase 71 Total Protein 6.5 Albumin 3.4 Globulin 3.0 Albumin/Globulin Ratio 1.1 Triglycerides 51 Cholesterol 117 L LDL Cholesterol Direct 34 HDL Cholesterol 59 Venous Blood Potassium Urine Color Urine Appearance Urine pH Ur Specific [place] Urine Protein Urine Glucose (UA) Urine Ketones Urine Blood Urine Nitrate Urine Bilirubin Urine Urobilinogen Ur Leukocyte Esterase Urine RBC Urine WBC Ur Epithelial Cells Urine Bacteria Urine Other Urine Opiates Screen Urine Methadone Screen Ur Barbiturates Screen Ur Phencyclidine Scrn Ur Amphetamines Screen U Benzodiazepines Scrn U Oth Cocaine Metabols U Cannabinoids Screen 09/03/17 07:06 WBC RBC Hgb Hct MCV MCH MCHC RDW Plt Count MPV Gran % Lymph % (Auto) [place] % (Auto) Eos % (Auto) Baso % (Auto) Gran # Lymph # (Auto) [place] # (Auto) Eos # (Auto) Baso # (Auto) pO2 VBG pH VBG pCO2 VBG HCO3 VBG Total CO2 VBG O2 Sat (Calc) VBG Base Excess VBG Potassium Sodium Chloride Glucose Lactate FiO2 Potassium Carbon Dioxide Anion Gap BUN Creatinine Est GFR ( Amer) Est GFR (Non-Af Amer) POC Glucose (mg/dL) 73 Random Glucose Calcium Total Bilirubin AST ALT Alkaline Phosphatase Total Protein Albumin Globulin Albumin/Globulin Ratio Triglycerides Cholesterol LDL Cholesterol Direct HDL Cholesterol Venous Blood Potassium Urine Color Urine Appearance Urine pH Ur Specific [place] Urine Protein Urine Glucose (UA) Urine Ketones Urine Blood Urine Nitrate Urine Bilirubin Urine Urobilinogen Ur Leukocyte Esterase Urine RBC Urine WBC Ur Epithelial Cells Urine Bacteria Urine Other Urine Opiates Screen Urine Methadone Screen Ur Barbiturates Screen Ur Phencyclidine Scrn Ur Amphetamines Screen U Benzodiazepines Scrn U Oth Cocaine Metabols U Cannabinoids Screen Assessment & Plan - Assessment and Plan (Free Text) Plan: Assessment Systemic Inflammatory response syndrome, R/O due to toxic-metabolic encephalopathy, R/O meningoencephalitis in this patient with confusion anxiety and depression S/P fibroid removal Plan Started Vancomycin, Cefepime, Ampicillin and Acyclovir pending blood, urine cx; reviewed MRI brain which is negative; patient may need lumbar puncture will monitor clinically
[2017-09-04] MEDS ORDERED: Barium Sulfate Susp 2.1% w/v, 2.0% w/w 450 mL Bottle PO ONE (12:48)
[2017-09-04] MEDS: Vancomycin 1gm in NS 250ml 1 GM/250 ML BAG IVPB SCH (12:53)
--- NOTE | 2017-09-04 14:17 | PN ---
DATE: 09/04/2017 SUBJECTIVE: The patient is 57 years old, seen and examined, very confused, disoriented, restless in the bed. Did not eat well. OBJECTIVE: VITAL SIGNS: She is afebrile, pulse 112, respirations 22, blood pressure 124/85. LUNGS: Bilateral fair airflow. No rhonchi or crackle. HEART: S1 and S2 audible. ABDOMEN: Soft. Nontender. No rebound. No guarding. NEUROLOGIC: She is awake and alert, but confused, disoriented. LABORATORY EXAM: WBC is 21.3, hemoglobin 9.5, hematocrit 29, and platelets of 253. Chemistry: Sodium 144, potassium 3.4, chloride 111, CO2 of 21. BUN 11, creatinine 0.8. Blood sugar of 81. Her blood cultures are negative. Urine is pending. CT of the head is negative. ASSESSMENT: 1. Altered mental status, etiology still not clear. 2. Leukocytosis, etiology still not determined yet. 3. History of psychologic disorder. 4. Poor oral intake. 5. Hypokalemia. PLAN: Patient is empirically on IV antibiotics. I will order for CT of the chest, abdomen, and pelvis. Psych medication to be adjusted by the psychiatrist. We will follow up CBC and CMP in the a.m. El Salazar MD
[2017-09-04] MEDS: AMPicillin 1 GM in Sodium Chloride 0.9% 100 ML IVPB SCH (17:00)
--- NOTE | 2017-09-04 18:13 | CP.PCM.PCO ---
Addendum Addendum: Psychiatric consultation was dictated, please refer to dictation ID [id number]. With patient's consent, I left a voicemail for patient's roommate, Katherine Layla at [phone] at 6:08 pm requesting collateral about patient's history and presentation. I spoke with Katherine at 6:29 pm. Katherine was unable to provide extra information about patient's functioning or possible etiology of presentation. She did, however indicate that patient was at [facility] [place] last Friday (08/31/17) with complaints of dizziness and falling. I phoned [facility] ([phone]) at 6:37 pm and verified that patient is on the following medications: Seroquel 300 mg (filled 08/26/17) + 50 mg (filled 08/04/17) + 25 mg (filed 08/10/17 ) Klonopin 1 mg po TID (filled 08/29/17) Effexor ER 150 mg po bid (filled 08/26/17) Patient was prescribed these medications by Dr. De La Fuente but has recently been prescribed these medications by Dr. Shashank Rivera. I sent a text message to Dr. Rivera at 6:42 pm informing him that his patient was medically hospitalized at [facility]. PLAN Effexor 75 mg po bid will be increased to 150 mg po bid. Psychiatry will f/u with patient tomorrow. 09/04/17 19:07
[2017-09-04] MEDS: Cefepime IV 2 gm in NS 2 GM/100 ML BAG IVPB SCH (23:06)
[2017-09-05] MEDS: AMPicillin 1 GM in Sodium Chloride 0.9% 100 ML IVPB SCH ×3 (00:03→12:05)
[2017-09-05] MEDS: Sodium Chloride 0.9% 1,000 ML IV SCH ×2 (00:36→21:47)
[2017-09-05] MEDS: Vancomycin 1gm in NS 250ml 1 GM/250 ML BAG IVPB SCH ×2 (00:37→12:05)
--- NOTE | 2017-09-05 04:49 | CON ---
DATE: 09/04/2017 HISTORY OF PRESENT ILLNESS: The patient is a 57-year-old white female with no reported formal psychiatric history, though is being prescribed Klonopin, Seroquel and Effexor by primary care doctor, no reported history of suicide attempts or psychiatric hospitalization, who presented to the emergency department by EMS after roommate called for help because the patient was acting confused and disoriented. Roommate found the patient on the floor not behaving like herself, acting strangely, picking out a wire, with [id number] behaviors. The patient has been a poor historian while she has been medically hospitalized to evaluate the etiology of this presentation. She has bouts of confusion and agitation according to nursing notes and generally remains unpredictable. It has been difficult to elicit a coherent interview with her by anyone, including the various consultations requested for patient, including Infectious Disease as well as Neurology. I met with the patient at bedside in addition to nursing staff at 02:45 p.m. today. Patient with intermittent ability to focus and concentrate with my questioning. She mumbles and she rambles. I frequently had to request that she repeat herself in order to clarify her responses as well as to ensure that they are consistent. What I am able to determine is that the patient is depressed and distressed about something. It might be related to Vishal Rich; however, it is very difficult to determine the nature of her distress. This cannot be elucidated despite multiple attempts at asking the patient to repeat herself. She is emotional at bedside, cries, she becomes restless, she self-escalate into an anxiety episode, still the reasons are unclear. As noted, she has not been consistently cooperating with staff request. She has refused the CT scan of chest abdomen and pelvis, and she was also kicking and yelling with staff members earlier the day. The patient denies any suicidal, denies any homicidal. She denies any hallucinations. She also denies any history of hallucinations as well. Her insight and judgement are poor, and it is unclear whether she is a credible historian regarding her history. She remains unpredictable and she is not psychiatrically cleared, if she should be medically cleared. Vital signs and lab work were reviewed, and specifically toxicology is only positive for benzos. Relevant psychiatric medications include Klonopin 1 mg p.o. t.i.d, Seroquel 300 mg daily, Effexor 75 mg p.o. b.i.d. PSYCHIATRIC HISTORY: The patient denies having any psychiatric hospitalizations or current outpatient psychiatric followup. However, she does report that a primary care doctor prescribed her Klonopin, Seroquel and Effexor. She has a superficial understanding with these medication are supposed to treat. Initially, she indicated that Klonopin is treating her mood and schizophrenia, and I had to correct her and educate her that Seroquel generally changes the mood in schizophrenia, though patient does deny having any history of hallucinations in this regard. The patient denies having any history of suicide attempts. SOCIAL HISTORY: The patient was born and raised in [place]. The patient reported that she is . Denies having any children. She lives with her roommate Vishal Rich for the last couple of years. She is unemployed due to psychiatric reasons. She denies any drug or alcohol issues. IMPRESSION: Consider delirium, rule out schizoaffective disorder, rule out major depressive disorder with psychotic features, rule out mood disorder secondary to general medical conditions. RECOMMENDATIONS: At this time it is unclear what the etiology of patient's presentation is, though it is quiet clear that she is confused and in distress. I will continue with her current medications as prescribed, as there is no acute indication to change them; however, I will also provide Seroquel 50 mg every 6 hours p.r.n. for her agitation, as the patient appears very restless at bedside. This will also help with any possible disorganization. Klonopin will also be continued, provided her systolic blood pressure is not less than 100; and Effexor will also be continued, as withdrawal from this medication can elicit rebound depression, anxiety as well a discomfort. Psychiatry will follow up with patient tomorrow, 09/05/2017, and continue to assess her progress in mental status. In the meantime, the patient does give permission for this provider to speak with her roommate, Vishal Rich, and this provider will attempt to reach out to this individual to obtain more collateral information about the patient's history. Sharad Garcia MD
[2017-09-05] MEDS: Pantoprazole 40 mg EC Tab PO SCH (06:20)
[2017-09-05 07:07] LABS: BASO # 0.05 K/mm3 (0.0-2.0); BASO % 0.3 % (0.0-3.0); EOS # 0.5 (0.0-0.7); EOS % 2.6 % (1.5-5.0); GRAN # 14.49 (1.4-6.5); GRAN % 84.1 % (50.0-68.0); HEMOGLOBIN 9.5 g/dL (12.0-16.0); LYMPH # 1.3 (1.2-3.4); LYMPH % 7.3 % (22.0-35.0); MEAN CELL VOLUME 78.8 fl (80.0-105.0); MEAN CORPUSCULAR HEMOGLOBIN 25.2 pg (25.0-35.0); MEAN PLATELET VOLUME 10.4 fl (7.0-11.0); MONO % 5.7 % (1.0-6.0); RBC 3.77 10^6/uL (3.5-6.1); RED CELL DISTRIBUTION WIDTH 14.1 % (11.5-14.5); WHITE BLOOD COUNT 17.2 10^3/ul (4.5-11.0)
[2017-09-05 07:30] LABS: ALBUMIN 3.5 g/dL (3.0-4.8); ALT/SGPT 32 U/L (7-56); AST/SGOT 44 U/L (14-36); BLOOD UREA NITROGEN 13 mg/dL (7-21); CALCIUM 8.7 mg/dL (8.4-10.5); GFR AFRICAN-AMERICAN > 60; GFR NON-AFRICAN AMERICAN > 60
[2017-09-05] MEDS: Venlafaxine 75 mg ER Cap PO SCH ×2 (10:08→18:11)
[2017-09-05] MEDS: Cefepime IV 2 gm in NS 2 GM/100 ML BAG IVPB SCH ×2 (10:08→21:45)
[2017-09-05] MEDS ORDERED: Potassium Chloride 20 mEq ER Tab PO ONE (12:36)
--- NOTE | 2017-09-05 12:58 | CP.PCM.PN ---
Subjective - Date & Time of Evaluation Date of Evaluation: 09/05/17 Time of Evaluation: 11:40 - Subjective Subjective: Patient is now awake, alert, oriented and not agitated, no fevers. Does not recall how she ended up in the hospital. Objective - Vital Signs/Intake and Output Vital Signs (last 24 hours): Temp Pulse Resp BP Pulse Ox 97.9 F 89 20 130/88 98 09/05/17 06:00 09/05/17 06:00 09/05/17 06:00 09/05/17 06:00 09/05/17 06:00 Intake and Output: 09/05/17 09/05/17 06:59 18:59 Intake Total 1740 Output Total 1400 Balance 340 - Medications Medications: Current Medications Acetaminophen (Tylenol 325mg Tab) 650 mg PO Q6H PRN PRN Reason: Fever >100.4 F Atorvastatin Calcium (Lipitor) 40 mg PO DIN [facility] Last Admin: 09/04/17 16:25 Dose: Not Given Clonazepam (Klonopin) 1 mg PO TID NGUYEN PRN Reason: Protocol Sodium Chloride (Sodium Chloride 0.9%) 1,000 mls @ 100 mls/hr IV .Q10H [facility] Last Admin: 09/05/17 00:36 Dose: 100 mls/hr Cefepime HCl (Maxipime 2gm) 2 gm in 100 mls @ 100 mls/hr IVPB Q12 NGUYEN PRN Reason: Protocol Stop: 09/09/17 22:01 Last Admin: 09/04/17 23:06 Dose: 100 mls/hr Vancomycin HCl (Vancomycin 1gm) 1 gm in 250 mls @ 167 mls/hr IVPB Q12H NGUYEN PRN Reason: Protocol Last Admin: 09/05/17 00:37 Dose: 167 mls/hr Acyclovir 600 mg/ Sodium (Chloride) 100 mls @ 100 mls/hr IV Q8 NGUYEN PRN Reason: Protocol Last Admin: 09/05/17 06:20 Dose: 100 mls/hr Ampicillin 1 gm/ Sodium (Chloride) 100 mls @ 200 mls/hr IVPB Q6 NGUYEN PRN Reason: Protocol Last Admin: 09/05/17 05:17 Dose: 200 mls/hr Pantoprazole Sodium (Protonix Ec Tab) 40 mg PO 0630 [facility] Last Admin: 09/05/17 06:20 Dose: 40 mg Quetiapine Fumarate (Seroquel) 300 mg PO DAILY NGUYEN PRN Reason: Protocol Last Admin: 09/04/17 10:04 Dose: 300 mg Quetiapine Fumarate (Seroquel) 50 mg PO Q6H PRN; Protocol PRN Reason: Agitation Last Admin: 09/05/17 00:04 Dose: 50 mg Venlafaxine HCl (Effexor Xr) 150 mg PO BID NGUYEN - Labs Labs: 09/05/17 06:30 09/05/17 06:30 PT 12.6 SECONDS (9.4-12.5) H 09/02/17 18:46 INR 1.10 (0.93-1.08) H 09/02/17 18:46 APTT 33.3 Seconds (25.1-36.5) 09/02/17 18:46 - Constitutional Appears: Non-toxic, Chronically Ill - Head Exam Head Exam: NORMAL INSPECTION - ENT Exam ENT Exam: Mucous Membranes Moist - Neck Exam Neck Exam: absent: Lymphadenopathy, Meningismus - Respiratory Exam Respiratory Exam: absent: Rales, Rhonchi - Cardiovascular Exam Cardiovascular Exam: +S1, +S2 - GI/Abdominal Exam GI & Abdominal Exam: Soft. absent: Tenderness Assessment and Plan - Assessment and Plan (Free Text) Plan: Assessment Systemic Inflammatory response syndrome, R/O due to toxic-metabolic encephalopathy, R/O psychosis R/O meningoencephalitis in this patient S/P confusion anxiety and depression S/P fibroid removal Plan continue Vancomycin, Cefepime, and Acyclovir day 2 pending final culture results ; reviewed MRI brain which is negative; patient may benefit from lumbar puncture although patient is clinically improved will continue to monitor clinically follow up HIV test
--- NOTE | 2017-09-05 18:01 | PN ---
DATE: 09/05/2017 FOLLOWUP NOTE SUBJECTIVE: In short, the patient is 57-year-old female who was admitted on the medical side for evaluation of change in mental status. The patient has history of mental illness. The patient was on psychotropic medication. Psych consult was called for the same reason for medication management as well as psychotropic medications. The patient was seen and examined. The patient initially was seen by Dr. Garcia. Notes reviewed and appreciated. The patient presented to be alert and oriented in self, place, but was not sure about the date, but was aware about month and year. The patient presented somewhat confused, was providing inconsistent history, had difficulty to sustain her attention and stay focused during the interview, which leaves this investigative writer for impression that the patient is in delirium stage. The patient reported that now she feels little bit better. The patient was very friendly toward this investigative writer. OBJECTIVE: VITAL SIGNS: Reviewed. Temperature 97.9, pulse is 89, blood pressure 130/88, respirations 20, oxygen saturation is 98%. MEDICATIONS: Reviewed. The patient is on Tylenol, acyclovir, Lipitor, Maxipime, Klonopin 1 mg three times a day, Protonix, Seroquel as needed for agitation. The patient was on Seroquel 300 mg daily, but the patient asked this medication to be decreased. Agreed with that and Seroquel will be switched to the nighttime and 200 mg will be given to the patient. Sodium chloride, vancomycin, Effexor 150 mg twice a day. LABORATORY DATA: Reviewed. The patient still has leukocytosis at 17.2, but is trending down. Potassium 3.4, chloride 113. Toxicology: Benzodiazepines positive, but the patient was prescribed that medication. Notes reviewed. Based on pharmacy report, the patient was started on Seroquel 300 mg on , and before that the patient was on 50 mg and before that on 25 mg. Klonopin was continued and Effexor was continued. These medications were prescribed by Dr. Manning, psychiatrist. Microbiology reviewed. There is no growth yet. Notes from the nursing staff reviewed. The patient had episodes of confusion. The patient chest pain overnight. MENTAL STATUS EXAMINATION: The patient presented to be alert, more coherent. Intermittent eye contact. Speech was underproductive and at times disorganized. Mood described "I feel little better." Affect was constricted, but reactive. Thought processes: Seems to be confused as well as circumstantial, but as per Dr. Garcia as well as medical team, the patient is less confused. Thought content: The patient denied visual, auditory, or tactile hallucinations. Denied paranoid ideations. The patient does not appear to be psychotic, but confused and delirious. Insight and judgment seem to be improving. Impulses are well controlled as of now. IMPRESSION: This investigative writer is not sure what diagnosis the patient has, but questionable history of anxiety and depression. At present moment, the patient is having systemic inflammatory response syndrome. The patient obviously is in delirium stage as per medical team, rule out meningoencephalitis, rule out sepsis. The patient is on vancomycin, cefepime, and acyclovir. PLAN: Continue current management. Continue current medication. Medications were confirmed by Dr. Garcia yesterday. Please see notes for more detailed information. Patient asked Seroquel to be decreased. We will respect that and we will give 200 mg at the nighttime. Klonopin was resumed. Effexor also was resumed. The patient is calmer, but still has episodes of confusion. The patient is not clear to be discharged from the medical standpoint as well as from the psychiatric standpoint. Dr. Garcia will see the patient over the weekend. Thank you very much for letting me participate in care of your patient. Should you have any questions, give me a call back. Neena Moore MD
[2017-09-05] MEDS ORDERED: Iohexol 240 (50 ml) ONE (18:09)
[2017-09-06] MEDS: Vancomycin 1gm in NS 250ml 1 GM/250 ML BAG IVPB SCH ×3 (00:03→23:47)
[2017-09-06] MEDS: Pantoprazole 40 mg EC Tab PO SCH (05:40)
[2017-09-06 09:26] LABS: BASO # 0.05 K/mm3 (0.0-2.0); BASO % 0.5 % (0.0-3.0); EOS # 0.6 (0.0-0.7); EOS % 5.9 % (1.5-5.0); GRAN # 7.38 (1.4-6.5); GRAN % 67.5 % (50.0-68.0); HEMOGLOBIN 9.3 g/dL (12.0-16.0); LYMPH # 1.9 (1.2-3.4); LYMPH % 17.4 % (22.0-35.0); MEAN CELL VOLUME 78.6 fl (80.0-105.0); MEAN CORPUSCULAR HEMOGLOBIN 25.5 pg (25.0-35.0); MEAN CORPUSCULAR HGB CONC 32.5 g/dl (31.0-37.0); MONO % 8.7 % (1.0-6.0); RBC 3.64 10^6/uL (3.5-6.1); RED CELL DISTRIBUTION WIDTH 14.1 % (11.5-14.5); WHITE BLOOD COUNT 10.9 10^3/ul (4.5-11.0)
[2017-09-06] MEDS: Venlafaxine 75 mg ER Cap PO SCH ×2 (10:32→18:10)
[2017-09-06] MEDS: Cefepime IV 2 gm in NS 2 GM/100 ML BAG IVPB SCH ×2 (10:32→21:45)
--- NOTE | 2017-09-06 12:58 | PN ---
DATE: 09/06/2017 HISTORY OF PRESENT ILLNESS: Ms. Ferrera is a 57-year-old female, admitted to the hospital with altered mental status, confused. Never had fever, fever is not documented during the hospital stay either. She is currently on IV antibiotics and acyclovir. She has psych issues, mood disorder, evaluated by Psychiatry also. Leukocytosis unexplained. PAST MEDICAL HISTORY: Anxiety disorder, hyperlipidemia, chronic back pain, hepatic cyst. PAST SURGICAL HISTORY: None. ALLERGIES: ALLERGIC TO LATEX. MEDICATIONS: Klonopin, Effexor, Seroquel, pravastatin, Naprosyn, codeine. SOCIAL HISTORY: Lives by herself. PERSONAL HISTORY: Ex-smoker. FAMILY HISTORY: Noncontributory. PHYSICAL EXAMINATION GENERAL: Awake, alert, oriented. VITAL SIGNS: Afebrile, temperature 98.7, heart rate 80 per minute, blood pressure 110/60, respiratory rate 18 per minute. HEENT: Pallor positive. NECK: No lymphadenopathy. CHEST: Air entry present and equal bilateral. No added sounds. CARDIOVASCULAR: S1 and S2 normal. No murmur. No gallop. ABDOMEN: Soft and nontender. No hepatosplenomegaly. EXTREMITIES: No edema. LABORATORY DATA: White count 10,000, hemoglobin 9.3, hematocrit 28.7, platelet count 299, MCV 78. Sodium 145, potassium 3.4, creatinine 0.8. ASSESSMENT: 1. Altered mental status. 2. Leukocytosis. 3. Psych disorder. 4. Hypokalemia. PLAN: She is currently on IV antibiotics as per ID, cefepime and vancomycin. She is also on acylovir. Meningitis has been ruled out, evaluated by Neurology. Psychiatry consultation appreciated. Medications were adjusted, currently on Klonopin and Seroquel. We will continue that. We will continue to monitor blood count. Renal function is stable. CT of chest, abdomen and pelvis done today. Neelam Valdes MD
--- NOTE | 2017-09-06 13:14 | PN ---
DATE: 09/06/2017 SUBJECTIVE: The patient is in bed, in no acute distress, nontoxic. PHYSICAL EXAMINATION: VITAL SIGNS: Temperature is 98, blood pressure is 120/60, respiratory rate of 20, heart rate of 101. HEENT: Examination of HEENT is unremarkable. NECK: Supple. LUNGS: Have decreased breath sounds. HEART: Normal S1, S2. ABDOMEN: Soft, nontender. LABORATORY DATA: Laboratory examination reveals a white count 11,900, hemoglobin of 9, platelets of 299. Chemistries reveals a BUN of 13, creatinine of 0.8. Urinalysis is noted. Microbiology reveals urine cultures negative, blood cultures are negative. Review of orders reveals the patient to be on cefepime and acyclovir and vancomycin. The patient has a CAT scan of the chest and abdomen was done, results are pending. ASSESSMENT AND PLAN: A 57-year-old female with systemic inflammatory response syndrome, etiology is unclear, status post confusion, anxiety and depression, on vancomycin, cefepime, acyclovir, day #3. Waiting for a spinal tap. The patient is still somewhat confused as of this morning. The patient did not have an MRI I could find. The patient did have a CAT scan of the head, which was negative on 09/02/2017, will need an MRI and a spinal tap. The MRI was without contrast, valuable only to rule out a bleed. We will discuss with Dr. Salazar regarding need for MRI and a spinal tap. Iron Quiñones MD
--- NOTE | 2017-09-06 15:43 | CT ---
PROCEDURE: CT chest abdomen pelvis with oral contrast HISTORY: Unexplained leukocytosis COMPARISON: Comparison made with CT scan abdomen pelvis 09/08/2015 TECHNIQUE: Contiguous helical/transaxial images of the abdomen and pelvis. Oral contrast was administered. No IV contrast given per request. Coronal and Sagittal reformats generated. The study is limited due to the lack of circulating intravenous contrast material. Radiation dose: Total exam DLP = 659.99 in mGy-cm. This CT exam was performed using one or more of the following dose reduction techniques: Automated exposure control, adjustment of the mA and/or kV according to patient size, and/or use of iterative reconstruction technique. . The FINDINGS: CT CHEST WITH CONTRAST: LUNGS: There are patchy infiltrate changes seen in the right and left upper and lower lobes right greater than left. Small bilateral effusions right also larger than left. MEDIASTINUM: Heart size is within range of normal. No significant pericardial effusion. Ascending thoracic aorta measures approximately 3.6 cm and descending thoracic aorta measures approximately 2.3 cm. Pulmonary trunk measures approximately 3.0 cm. LYMPH NODES: Few small nonspecific mediastinal lymph nodes are present. . PLEURA: As above. No evidence of pneumothorax BONES: There is mild multilevel degenerative spondylosis of the thoracic spine. . No acute or chronic compression fractures no retropulsed fragments. Small sclerotic on focus within T10 segment most likely represents a small bone island or osteoma. OTHER FINDINGS: None. CT ABDOMEN AND PELVIS: LIVER: Liver exhibits normal size and attenuation pattern. There is a small approximately 6 mm low-attenuation focus left lobe liver likely representing small cysts based on Hounsfield units obtained in the mid single digits. GALLBLADDER AND BILE DUCTS: Gallbladder physiologically distended. No evidence of intraluminal gallbladder calculi. . PANCREAS: Pancreas is slightly atrophic and fatty replaced. No gross lesion or ductal dilatation. SPLEEN: Spleen exhibits normal size and attenuation pattern ADRENALS: Slightly nodular appearing left adrenal gland. KIDNEYS AND URETERS: Unremarkable. No hydronephrosis. No solid mass. VASCULATURE: Unremarkable. No aortic aneurysm. BOWEL: . Evaluation of the bowel is somewhat limited due to incomplete opacification. The stomach is incompletely distended with liquid contrast and air. Visualized loops of small bowel exhibit normal contour and caliber. No evidence acute mechanical small bowel obstruction. There is a large amount of stool seen throughout the colon consistent with fecal retention/constipation. APPENDIX: Normal-appearing retrocecal appendix. PERITONEUM: There is a tiny amount of free fluid seen within cul de sac. Small fat containing umbilical hernia. LYMPH NODES: Unremarkable. No enlarged lymph nodes. BLADDER: Urinary bladder collapsed about an in situ unclamped Wiggins catheter. Urinary bladder wall is thickened at due to incomplete distention at and therefore evaluation limited. . Tiny amount of air within the urinary bladder likely due to instrumentation however Correlation with urinalysis recommended to exclude the possibility of a cystitis REPRODUCTIVE: Unremarkable. BONES: Multilevel degenerative spondylosis of the lumbar spine most pronounced at the L1-L2 level. No acute fractures. OTHER FINDINGS: None. IMPRESSION: Patchy bilateral most pronounced in the lower lobes. . Small bilateral effusions right slightly larger than left Probable small hepatic cyst. Small amount of fluid within the cul de sac. Urinary bladder cannot be adequately evaluated due to in situ unclamped Wiggins catheter. Tiny amount of air within the urinary bladder likely due to instrumentation however Correlation with urinalysis recommended to exclude the possibility of a cystitis Findings consistent with constipation. The
[2017-09-07] MEDS: Sodium Chloride 0.9% 1,000 ML IV SCH ×2 (05:10→06:19)
[2017-09-07] MEDS: Pantoprazole 40 mg EC Tab PO SCH ×2 (05:16→06:18)
[2017-09-07 07:41] VITALS: BP 114/71; PULSE 91; RESP 20; TEMP 98.3; O2SAT 100
[2017-09-07] MEDS: Venlafaxine 75 mg ER Cap PO SCH (09:36)
[2017-09-07] MEDS: Cefepime IV 2 gm in NS 2 GM/100 ML BAG IVPB SCH (09:37)
[2017-09-07] MEDS: Vancomycin 1gm in NS 250ml 1 GM/250 ML BAG IVPB SCH (13:03)
--- NOTE | 2017-09-07 14:22 | CON ---
STORY OF PRESENT ILLNESS: The patient is a 57-year-old white female with a history of depression, anxiety, who currently being followed at [facility] by and compliant with medication of Effexor, Seroquel and Klonopin, who Psychiatry is following due to presenting to the ER acutely disoriented, confused, restless and breathless. Psychiatry is following the patient for last 4 days and the patient has been improving and has shown sustained improvement, the greatest amount in the last 48 hours. As my notes indicated yesterday, the patient is much more coherent. She is oriented to month, year, location, and circumstances. Focus is improved and eye contact is good. Her memory is also improved and she remembers me from my prior visits. She is generally pleasant. She has been tolerating her medications, responses are coherent and consistent as well as goal directed. She has not been hallucinating. She denies hallucinations or . There is no indication of this in any of the nursing notes. The patient does not appear to have a history of psychosis when I contacted regarding her presentation and generally only suffers from depression and anxiety which she denies at this time. Her insight and judgement are notably improved since my initial visit with her 4 days ago on 09/04/2017. Labs and vitals were reviewed by the provider. MEDICATIONS: Relevant psychiatric medication include Klonopin 1 mg p.o. t.i.d., Seroquel 200 mg p.o. at bedtime as well as 50 mg every 6 hours p.r.n., which the patient has not needed in few days as well as Effexor XR 150 mg p.o. b.i.d. IMPRESSION: Resolving delirium as well as history of depression, anxiety, non-contributory at this time. RECOMMENDATIONS: We will continue with current recommendations. There is no acute indication for change of psychiatric medications at this time and we will continue current dosage. I have been communicating with as well as labs and recent medication changes has been provided to with the patient's permission from the unit. Psychiatry will sign off at this time. Please re-consult as necessary if there are any acute changes in the patient's presentation. Sharad Garcia MD [facility] # [id number]
--- NOTE | 2017-09-07 16:23 | PN ---
DATE: 09/07/2017 SUBJECTIVE: The patient is in bed, in no acute distress, nontoxic. PHYSICAL EXAMINATION: VITAL SIGNS: Temperature is 98, blood pressure is 114/70, respiratory rate 20. HEENT: Unremarkable. NECK: Supple. LUNGS: Decreased breath sounds. HEART: Normal S1, S2. ABDOMEN: Soft, nontender. LABORATORY EXAMINATION: Reveals the patient's white count is down to normal, now 10.9, hemoglobin of 9. Chemistries are noted. BUN of 13, creatinine of 0.8. Urinalysis is noted. HIV is negative. Microbiology reveals the blood cultures are negative. Urine cultures are negative. The patient's CAT scan of the abdomen and pelvis and chest is noted. ASSESSMENT AND PLAN: A 57-year-old female with systemic inflammatory response syndrome status post confusion, history of anxiety and depression. The patient is completely awake and oriented x3. She states that she was perfectly fine up to the time that she had period of confusion. She denied any headaches, any fevers. Her symptoms have completely resolved. Case discussed with Dr. Valdes, who likes to discharge the patient on p.o. antibiotics. At this point since her symptoms have completely resolved, she maybe followed up as an outpatient as discussed with Dr. Valdes. Iron Quiñones MD
--- NOTE | 2017-09-08 08:28 | CON ---
DATE: 09/06/2017 HISTORY OF PRESENT ILLNESS: The patient is a 57-year-old female who is being followed by Psychiatry on the medical side as her change in mental status is being evaluated. I met with patient [address] Moore with her yesterday. I reviewed recent notes and meet with her again this morning. Patient appears to be improving in orientation, emotional control and focus. Patient does not recall me from my visit with her couple days ago, however, she is friendly and subjectively reports improvement in the aforementioned symptoms. Patient is well oriented to month, year, location and circumstances. Patient reports that she is feeling much less anxious although she does worry about where she is living. Patient indicates that she has had some discord with her current roommate, Don regarding one of Don's friends who patient feels visits too much at their shared residency. Patient denies being depressed, hopeless or suicidal. She denies having hallucination, harm herself, denied thoughts to harm Don or her friend. I reviewed the medications being provided to the patient and she is tolerating current medications very well, the Seroquel, reduced dose of 200 mg at bedtime has been beneficial for her and she reports sleeping fairly well. Thought process is coherent, she does not appear to be responding to the internal stimuli and she does not appears to be overtly paranoid and delusions were not elicited. She has been in much better control and recent staff notes indicate that she has been comfortable without the stress and has been receptive and compliant with staff and medical team request in over 24 hours. Insight and judgement are improving. RELEVANT PSYCHIATRIC MEDICATIONS: Include Klonopin 1 mg p.o. t.i.d., Seroquel 50 mg every 6 hours p.r.n., patient received three doses yesterday, but no doses this morning so far, Seroquel 200 mg at bedtime as well as Effexor XR 150 mg p.o. b.i.d. Labs and vital were reviewed by this provider. IMPRESSION: Resolving delirium, which appears to be the main etiology of patient's presentation at this time. RECOMMENDATIONS: We will continue with current medications. There is no acute indication to change them at this time as patient appears to be improving. Sharad Garcia MD [facility] # [id number]
--- NOTE | 2017-09-08 09:15 | PN ---
DATE: 09/05/2017 SUBJECTIVE: The patient is 57 years old, seems to be a little more alert, still agitated, squirming in the bed, picking on things. PHYSICAL EXAMINATION: VITAL SIGNS: She is afebrile, pulse 101, respirations 20, blood pressure 113/83. LUNGS: Bilateral fair airflow. No rhonchi or crackle. HEART: S1 and S2 audible. ABDOMEN: Soft. Nontender. No rebound. No guarding. NEUROLOGICAL: She is awake and alert, but somewhat confused and disoriented. Able to carry small conversation. LABORATORY EXAM: WBC 17.2, hemoglobin 9.5, hematocrit 29.7, platelet 266. Sodium 145, potassium 3.4, chloride 113, CO2 of 16, BUN 13, creatinine 0.8, blood sugar 96. Blood culture, urine cultures were negative. ASSESSMENT: 1. Systemic inflammatory response syndrome, etiology is still unclear. 2. Altered mental status secondary to toxic metabolic encephalopathy. 3. History of psychosis. PLAN: Currently, the patient is on Maxipime. We will continue her on cefepime. Discontinue her IV fluid. We will follow up her CBC, CMP intermittently. She is on vancomycin, we will continue that. We will follow up this patient in the a.m. I will order for CT scan of the chest, abdomen and pelvis and I will reevaluate in the a.m. El Salazar MD
== END 2017-09-07 15:34 | disposition home or self-care (01) | DRG 92 ==
LOC: ED 18:24 → ERH 20:11 → 2RSO 09-03 01:31 → 5RSO 09-04 14:11
PROVIDERS: ADMIT Internal Medicine; ATTEND Internal Medicine
DX: G92 Toxic encephalopathy (principal); M62.82 Rhabdomyolysis; N39.0 Urinary tract infection, site not specified; R65.10 Systemic inflammatory response syndrome (SIRS) of non-infectious origin without acute organ dysfunction; E78.5 Hyperlipidemia, unspecified; E86.0 Dehydration; E87.6 Hypokalemia; F20.9 Schizophrenia, unspecified; F41.9 Anxiety disorder, unspecified; F32.89 Other specified depressive episodes; G40.909 Epilepsy, unspecified, not intractable, without status epilepticus; Z79.899 Other long term (current) drug therapy; Z87.891 Personal history of nicotine dependence; Z91.040 Latex allergy status; R40.2412 Glasgow coma scale score 13-15, at arrival to emergency department; M54.9 Dorsalgia, unspecified; G89.29 Other chronic pain; K76.89 Other specified diseases of liver; Z91.81 History of falling

== ENCOUNTER 2017-11-29 12:04 | Inpatient (IN) | payer MEDICARE, OTHER ==
[2017-11-29 12:09] VITALS: BMI 25.6
[2017-11-29] MEDS ORDERED: Clindamycin 600mg/50ml D5W 600 MG/50 ML VIAL IVPB STA (13:06)
--- NOTE | 2017-11-29 13:14 | ED PDOC ---
Arrival/HPI - General Chief Complaint: Dental Pain Time Seen by Provider: 11/29/17 12:51 Historian: Patient - History of Present Illness Narrative History of Present Illness (Text): 11/29/17 13:11 57yr old female presents today with worsening left sided facial pain and swelling. Patient states she has been having dental pain for a while now and yesterday developed swelling and pain to left side of face and inferior aspect of the eye. Patient states she saw her dentist today and was given prescription for antibiotics comes into the emergency room for evaluation of her swelling spreading to the left thigh. Patient denies blurred vision. Denies pain with eye movement. Patient denies headaches. Denies fevers or chills. Denies neck pain. No other complaints Past Medical History - Provider Review Nursing Documentation Reviewed: Yes - Travel History Have you recently traveled outside [place] w/in the past 3 mons?: No - Past History Past History: Non-Contributing - Infectious Disease Hx of Infectious Diseases: None - Tetanus Immunization Tetanus Immunization: Unknown - Cardiac Hx Pacemaker: No - Neurological Hx Dizziness: Yes Hx Paralysis: No - Hematological/Oncological Hx Blood Transfusions: No - Musculoskeletal/Rheumatological Hx Falls: Yes (poor historian) - Psychiatric Hx Anxiety: Yes Hx Depression: Yes Hx Substance Use: No - Surgical History Other/Comment: unable to obtain, pt's mental status is altered. Poor historian - Anesthesia Hx Anesthesia: Yes Hx Anesthesia Reactions: No Hx Malignant Hyperthermia: No - Suicidal Assessment Feels Threatened In Home Enviroment: No Family/Social History - Physician Review Nursing Documentation Reviewed: Yes Family/Social History: Unknown Family HX Smoking Status: Unknown If Ever Smoked Hx Alcohol Use: No Hx Substance Use: No Hx Substance Use Treatment: No Allergies/Home Meds Allergies/Adverse Reactions: Allergies latex Allergy (Verified 02/28/16 11:46) SWELLING Home Medications: Home Meds Medication Instructions Recorded Confirmed Atorvastatin [Lipitor] 40 mg PO QPM 09/03/17 11/29/17 Clonazepam [Klonopin] 1 mg PO TID 09/03/17 11/29/17 Estradiol [Vivelle-Dot] 0.0375 mg TD QWK 09/03/17 11/29/17 Nortriptyline HCl [Pamelor] 10 mg PO QPM 09/03/17 11/29/17 Omeprazole 20 mg PO DAILY 09/03/17 11/29/17 QUEtiapine [SEROquel] 300 mg PO HS 09/03/17 11/29/17 Review of Systems - Review of Systems Constitutional: absent: Fatigue, Fevers Eyes: absent: Vision Changes, Photophobia, Eye Pain ENT: Other (dental pain, facial swelling) Respiratory: absent: SOB, Cough Cardiovascular: absent: Chest Pain, Palpitations Gastrointestinal: absent: Abdominal Pain, Nausea, Vomiting Skin: absent: Pruritis Psychiatric: absent: Anxiety, Depression Physical Exam Vital Signs Reviewed: Yes Vital Signs Temp Pulse Resp BP Pulse Ox 11/29/17 18:32 97.8 F 82 18 130/54 L 99 11/29/17 15:09 97.7 F 69 18 110/71 99 11/29/17 12:13 97.7 F 88 18 106/73 97 Temperature: Afebrile Blood Pressure: Normal Pulse: Regular Respiratory Rate: Normal Appearance: Positive for: Well-Appearing, Non-Toxic, Comfortable Pain Distress: None Mental Status: Positive for: Alert and Oriented X 3 - Systems Exam Head: Present: Swelling (+ left sided edema noted to to inferior aspect of eye and cheek with slight erythema noted to inferior aspect of left eye. ) Pupils: Present: PERRL Extroacular Muscles: Present: EOMI. No: Entrapment Conjunctiva: Present: Normal. No: Injected Ears: Present: Normal, NORMAL TM Mouth: Present: Moist Mucous Membranes, Normal Lips, Normal Tounge. No: Drooling, Trismus, Normal Teeth (poor dentition; multiple dental fracture, Left upper molar dental tenderness. ) Pharnyx: Present: Normal. No: ERYTHEMA, EXUDATE Neck: Present: Normal Range of Motion, Trachea Midline. No: Lymphadenopathy Respiratory/Chest: Present: Clear to Auscultation, Good Air Exchange. No: Respiratory Distress, Accessory Muscle Use Cardiovascular: Present: Regular Rate and Rhythm, Normal S1, S2. No: Murmurs Neurological: Present: GCS=15 Skin: Present: Warm, Dry, Normal Color Psychiatric: Present: Alert, Oriented x 3 Medical Decision Making ED Course and Treatment: 11/29/17 13:16 Patient is nontoxic well-appearing in no distress with stable vital signs No trismus or drooling, moist mucous membranes cbc; wnl cmp; wnl blood cultures pending. pt given clindamycin IV ct maxillofacial with contrast: FINDINGS: NASAL BONES: Unremarkable. ORBITS: Unremarkable right orbit. Preseptal or left orbital cellulitis is appreciated without postseptal findings. Left orbital cellulitis is likely related to dental abscess described be low in PARANASAL SINUSES/ MASTOIDS: Clear. MAXILLA: There is 1.3 x 0.7 cm abscess abutting the left maxilla immediately lateral to the roots of a carious premolar. Thin lucency surrounds the roots of this tooth as well as others more anteriorly and on the right side as well. This periapical abscesses likely the cause of the larger abscess adjacent to the maxilla. Left cheek edema it appears [id number]. MANDIBLE/ TEMPOROMANDIBULAR JOINTS: Unremarkable. SKULL BASE: Unremarkable. TEMPORAL BONES: Middle ears and mastoid grossly unremarkable. OTHER FINDINGS: None. 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 A smaller left apical abscesses related to left maxilla tooth appears to be etiology. Please see discussion above. vancomycin added; case discusses with OM[facility] at [facility]; Dr. Isidro; discussed the case in depth ; he does not feel that the patient needs to be transferred as there is no procedure that he would perform. pt seen and evaluated by dr. Vargas. case discussed with dr. bird covering for dr. wooten; accepts admission for facial cellulitis, periorbital cellulitis. admit to med/surg. she wants to add zosyn IV. zosyn ordered IV All results discussed in depth with the patient all aspects of this case were discussed the attending of record. impression; facial cellulitis, periorbital cellulitis, dental abscess admit to med/surg 11/29/17 20:15 - Lab Interpretations Lab Results: 11/29/17 13:50 11/29/17 13:50 Lab Results 11/29/17 13:50: WBC 7.9 D, RBC 4.21, Hgb 10.2 L, Hct 33.0 L, MCV 78.4 L, MCH 24.2 L, MCHC 30.9 L, RDW 15.0 H, Plt Count 226, MPV 10.8, Gran % 68.3 H, Lymph % (Auto) 17.4 L, [place] % (Auto) 8.7 H, Eos % (Auto) 5.1 H, Baso % (Auto) 0.5, Gran # 5.39, Lymph # (Auto) 1.4, [place] # (Auto) 0.7 H, Eos # (Auto) 0.4, Baso # ( Auto) 0.04 11/29/17 13:50: Sodium 143, Potassium 3.9, Chloride 108 H, Carbon Dioxide 26, Anion Gap 13, BUN 13, Creatinine 0.7, Est GFR ( Amer) > 60, Est GFR (Non- Af Amer) > 60, Random Glucose 97, Calcium 9.0, Total Bilirubin 0.4, AST 29, ALT 13, Alkaline Phosphatase 83, Total Protein 7.2, Albumin 3.9, Globulin 3.3, Albumin/Globulin Ratio 1.2 - RAD Interpretation Radiology Orders: 11/29/17 14:51 MAXILLOFACIAL W/CONTRAST [CT] Stat - Medication Orders Current Medication Orders: Oxycodone/Acetaminophen (Percocet 5/325 Mg Tab) 1 tab PO Q4H PRN PRN Reason: Pain, moderate (4-7) Stop: 12/02/17 19:26 Discontinued Medications Clindamycin Phosphate (Cleocin) 600 mg in 50 mls @ 50 mls/hr IVPB STAT STA PRN Reason: Protocol Stop: 11/29/17 14:05 Last Admin: 11/29/17 13:31 Dose: 50 mls/hr eMAR Start Stop Document 11/29/17 13:31 BRENDA (Rec: 11/29/17 13:31 BRENDA [id number]) Intravenous Solution Start Date 11/29/17 Start Time 13:31 End Date 11/29/17 End time 14:31 Total Infusion Time 60 Vancomycin HCl (Vancomycin 1gm) 1 gm in 250 mls @ 167 mls/hr IVPB STAT STA PRN Reason: Protocol Stop: 11/29/17 19:46 Last Admin: 11/29/17 18:22 Dose: 167 mls/hr eMAR Start Stop Document 11/29/17 18:22 BRENDA (Rec: 11/29/17 18:22 BRENDA [id number]) Intravenous Solution Start Date 11/29/17 Start Time 18:22 End Date 11/29/17 End time 19:52 Total Infusion Time 90 Piperacillin Sod/Tazobactam Sod (Zosyn 3.375 In Ns 100ml) 100 mls @ 200 mls/hr IVPB STAT STA PRN Reason: Protocol Stop: 11/29/17 19:53 Last Admin: 11/29/17 19:59 Dose: 200 mls/hr eMAR Start Stop Document 11/29/17 19:59 LA (Rec: 11/29/17 20:00 LA [id number]) Intravenous Solution Start Date 11/29/17 Start Time 19:59 End Date 11/29/17 End time 20:29 Total Infusion Time 30 Disposition/Present on Arrival - Present on Arrival Any Indicators Present on Arrival: No History of DVT/PE: No History of Uncontrolled Diabetes: No Urinary Catheter: No History of Decub. Ulcer: No History Surgical Site Infection Following: None - Disposition Have Diagnosis and Disposition been Completed?: Yes Diagnosis: Facial cellulitis, Periorbital cellulitis of left eye, Dental abscess Disposition: HOSPITALIZED Disposition Time: 18:27 Patient Plan: Admission Patient Problems: Current Active Problems Problem Status Onset Facial cellulitis Acute Periorbital cellulitis of left eye Acute Condition: FAIR
[2017-11-29 14:33] LABS: BASO # 0.04 K/mm3 (0.0-2.0); BASO % 0.5 % (0.0-3.0); EOS # 0.4 (0.0-0.7); EOS % 5.1 % (1.5-5.0); GRAN # 5.39 (1.4-6.5); GRAN % 68.3 % (50.0-68.0); HEMOGLOBIN 10.2 g/dL (12.0-16.0); LYMPH # 1.4 (1.2-3.4); LYMPH % 17.4 % (22.0-35.0); MEAN CELL VOLUME 78.4 fl (80.0-105.0); MEAN CORPUSCULAR HEMOGLOBIN 24.2 pg (25.0-35.0); MEAN CORPUSCULAR HGB CONC 30.9 g/dl (31.0-37.0); MEAN PLATELET VOLUME 10.8 fl (7.0-11.0); MONO # 0.7 (0.1-0.6); MONO % 8.7 % (1.0-6.0); RBC 4.21 10^6/uL (3.5-6.1); WHITE BLOOD COUNT 7.9 10^3/ul (4.5-11.0)
[2017-11-29 14:42] LABS: ALB/GLOB RATIO 1.2 (1.1-1.8); ALBUMIN 3.9 g/dL (3.0-4.8); ALT/SGPT 13 U/L (7-56); AST/SGOT 29 U/L (14-36); BLOOD UREA NITROGEN 13 mg/dL (7-21); GFR NON-AFRICAN AMERICAN > 60
[2017-11-29] MEDS ORDERED: Iohexol 350 MG/100 ML VIAL ONE (16:12)
--- NOTE | 2017-11-29 17:06 | CT ---
Date of service: 11/29/2017 PROCEDURE: CT MAXILLOFACIAL BONES WITH CONTRAST HISTORY: left facial swelling/ ? dental abscess COMPARISON: None. TECHNIQUE: Contiguous axial CT images of the maxillofacial bones were obtained following administration of IV contrast. Coronal and sagittal reformats were generated. Intravenous contrast Dose: Omnipaque 350, 100 cc Radiation dose: Total exam DLP = 754.80 mGy-cm. This CT exam was performed using one or more of the following dose reduction techniques: Automated exposure control, adjustment of the mA and/or kV according to patient size, and/or use of iterative reconstruction technique. FINDINGS: NASAL BONES: Unremarkable. ORBITS: Unremarkable right orbit. Preseptal or left orbital cellulitis is appreciated without postseptal findings. Left orbital cellulitis is likely related to dental abscess described be low in PARANASAL SINUSES/ MASTOIDS: Clear. MAXILLA: There is 1.3 x 0.7 cm abscess abutting the left maxilla immediately lateral to the roots of a carious premolar. Thin lucency surrounds the roots of this tooth as well as others more anteriorly and on the right side as well. This periapical abscesses likely the cause of the larger abscess adjacent to the maxilla. Left cheek edema it appears [id number]. MANDIBLE/ TEMPOROMANDIBULAR JOINTS: Unremarkable. SKULL BASE: Unremarkable. TEMPORAL BONES: Middle ears and mastoid grossly unremarkable. OTHER FINDINGS: None. 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 A smaller left apical abscesses related to left maxilla tooth appears to be etiology. Please see discussion above.
[2017-11-29] MEDS ORDERED: Vancomycin 1gm in NS 250ml 1 GM/250 ML BAG IVPB STA ×2 (17:35→18:17)
[2017-11-29] MEDS ORDERED: Piperacillin/Tazobact 3.375 gm 100 ML IVPB STA ×2 (17:35→19:24)
[2017-11-29] MEDS ORDERED: Oxycodone/Acetaminophen 5/325 mg Tab PO PRN (19:25)
[2017-11-29] MEDS ORDERED: Pneumococcal 23-Valent Vaccine IM ONE (21:35)
[2017-11-29] MEDS: QUEtiapine 300 mg XR Tab PO SCH (23:24)
[2017-11-29] MEDS: Piperacillin/Tazobact 3.375 gm 100 ML IVPB SCH (23:24)
[2017-11-30] MEDS: Piperacillin/Tazobact 3.375 gm 100 ML IVPB SCH ×3 (06:14→17:17)
[2017-11-30] MEDS: Pantoprazole 40 mg EC Tab PO SCH (06:14)
[2017-11-30] MEDS: Vancomycin 1gm in NS 250ml 1 GM/250 ML BAG IVPB SCH ×2 (06:24→17:26)
[2017-11-30 11:38] LABS: BLOOD UREA NITROGEN 11 mg/dL (7-21); CALCIUM 9.2 mg/dL (8.4-10.5); GFR NON-AFRICAN AMERICAN > 60
[2017-11-30 11:45] LABS: BASO # 0.04 K/mm3 (0.0-2.0); BASO % 0.5 % (0.0-3.0); EOS # 0.5 (0.0-0.7); EOS % 6.5 % (1.5-5.0); GRAN # 4.51 (1.4-6.5); GRAN % 60.1 % (50.0-68.0); HEMOGLOBIN 9.6 g/dL (12.0-16.0); LYMPH # 1.8 (1.2-3.4); LYMPH % 24.2 % (22.0-35.0); MEAN CELL VOLUME 78.5 fl (80.0-105.0); MEAN CORPUSCULAR HGB CONC 30.6 g/dl (31.0-37.0); MEAN PLATELET VOLUME 10.8 fl (7.0-11.0); MONO # 0.7 (0.1-0.6); MONO % 8.7 % (1.0-6.0); RED CELL DISTRIBUTION WIDTH 15.1 % (11.5-14.5); WHITE BLOOD COUNT 7.5 10^3/ul (4.5-11.0)
--- NOTE | 2017-11-30 14:46 | HP ---
DATE OF EXAM: 11/29/2017 HISTORY OF PRESENT ILLNESS: Ms. Ferrera is a 57-year-old female, presented to ED with left facial swelling and pain. She was also having history of dental pain for the past few days. Did not see the dentist. No fever. No cough with expectoration. CAT scan of the face done in the ED showed left orbital cellulitis without postseptal findings related to dental abscess. There is 1.3 cm abscess in the left maxilla. She received clindamycin and vancomycin in the ED. PAST MEDICAL HISTORY: Anxiety, depression. PAST SURGICAL HISTORY: None. SOCIAL HISTORY: Lives at home. ALLERGIES: LATEX. PERSONAL HISTORY: Nonsmoker. No history of alcohol abuse. HOME MEDICATIONS: Lipitor 40 mg daily, Klonopin 1 mg p.o. t.i.d., estradiol every weekly, omeprazole 20 mg daily, nortriptyline 10 mg daily, Seroquel 300 mg p.o. at bedtime. REVIEW OF SYSTEMS: As per HPI. Rest of 12-point review of systems reviewed negative. PHYSICAL EXAMINATION: GENERAL: Comfortable in bed, in no acute distress. VITAL SIGNS: Temperature 97.8, heart rate 82 per minute, respiratory rate 18 per minute, blood pressure 130/50, pulse ox is 99% on room air. HEENT: Left facial swelling extending from left cheek into the eye. No conjunctival erythema. No discharge from the eyes. NECK: No lymphadenopathy. CHEST: Air entry present and equal, bilateral. No added sounds. CARDIOVASCULAR: S1, S2 normal. No murmur. No gallop. ABDOMEN: Soft, nontender. No hepatosplenomegaly. EXTREMITY: No edema. VETERANS SERVICE OFFICER: Alert and oriented x3. No focal sensorimotor deficits. IMAGING: As per HPI. LABORATORY DATA: White count 7.9, hemoglobin 10.2, hematocrit 33, platelet 226. Sodium 143, potassium 3.9, BUN 13, creatinine 0.7, glucose 97, granulocytes 68%, lymphocytes 17%. ASSESSMENT: 1. Left facial cellulitis related to dental abscess. 2. Periorbital cellulitis. 3. Microcytic anemia. PLAN: Receive one dose clindamycin and vancomycin in the ED. I am going to order Zosyn stat. ID consultation, Dr. Quiñones requested. Continue Seroquel 300 mg p.o. at bedtime, IV fluid at 100 mL an hour, Protonix 40 mg daily. Continue nortriptyline 10 mg every p.m., Klonopin 1 mg p.o. t.i.d., Lipitor 40 mg daily. Neelam Valdes MD [facility] # [id number]
--- NOTE | 2017-11-30 14:53 | PN ---
DATE: 11/30/2017 FOLLOWUP NOTE SUBJECTIVE: She is comfortable in bed, in no acute distress. Left facial swelling, improved since admission. No discharge from the eye. She does not have pain in the left side of the face. No fever. No cough with expectoration. REVIEW OF SYSTEMS: As per HPI. Rest of 12-point review of systems reviewed negative. PHYSICAL EXAMINATION: GENERAL: Comfortable in bed, in no acute distress. VITAL SIGNS: Temperature 98.7, heart rate 80 per minute, blood pressure 120/70, respiratory rate 18 per minute, oxygen saturation 98% on room air. HEENT: Left-sided facial cellulitis present extending around the periorbital region. No discharge from the eye. NECK: No lymphadenopathy. CHEST: Air entry present and equal, bilateral. No added sounds. CARDIOVASCULAR: S1, S2 normal. No murmur. No gallop. ABDOMEN: Soft, nontender. No hepatosplenomegaly. EXTREMITY: No edema. LABORATORY DATA: Sodium 141, potassium 3.9, BUN 11, creatinine 0.8. White count 7.5, hemoglobin 9.5, hematocrit 31.4, platelet 234. MEDICATIONS: Lipitor 40 mg daily, Klonopin 1 mg p.o. t.i.d., Percocet 5/325 every 4 hours p.r.n., Protonix 40 mg daily, Zosyn every 6 hours, Seroquel and vancomycin. ASSESSMENT: 1. Left-sided facial cellulitis. 2. Dental abscess. 3. Microcytic anemia. PLAN: I will continue IV antibiotics, Zosyn and vancomycin as per ID. ENT consultation, Dr. Almeida requested. Pain control with current medications. Antiinflammatory, Motrin 600 mg p.o. t.i.d. started, Klonopin 1 mg p.o. t.i.d. Continue Protonix 40 mg daily, Lipitor 40 mg daily. Neelam Valdes MD
[2017-11-30] MEDS ORDERED: Lidocaine 1%/Epinephrine 1:100000 30 ml vial IJ ONE (15:01)
[2017-11-30] MEDS ORDERED: Lidocaine 2% Inj (20ml) INFIL STA (15:01)
[2017-11-30] MEDS ORDERED: Lidocaine 4% 50 mL Topical Sol (OR USE) TOP SCH (15:15)
--- NOTE | 2017-11-30 15:39 | CP.PCM.CON ---
History of Present Illness - History of Present Illness History of Present Illness: 57 y/o female with 3 day history of left cheek swelling and pain left cheek. Pt has multiple dental caries and has had issues with her teeth for years. Pt has pain and swelling of the left side of the face now affecting vision. Review of Systems - Constitutional Constitutional: As Per HPI - EENT Eyes: As Per HPI Ears: As Per HPI Nose/Mouth/Throat: As Per HPI - Breasts Breasts: As Per HPI - Cardiovascular Cardiovascular: As Per HPI - Respiratory Respiratory: As Per HPI - Gastrointestinal Gastrointestinal: As Per HPI - Genitourinary Genitourinary: As Per HPI - Reproductive: Female Reproductive:Female: As Per HPI - Menstruation Menstruation: As Per HPI - Musculoskeletal Musculoskeletal: As Per HPI - Integumentary Integumentary: As Per HPI - Neurological Neurological: As Per HPI - Psychiatric Psychiatric: As Per HPI - Endocrine Endocrine: As Per HPI - Hematologic/Lymphatic Hematologic: As Per HPI Past Patient History - Infectious Disease Hx of Infectious Diseases: None - Tetanus Immunizations Tetanus Immunization: Unknown - Past Social History Smoking Status: Former Smoker - CARDIAC Hx Cardiac Disorders: Yes (cp, hypotension) Hx Angina: Yes Hx Hypercholesterolemia: Yes Hx Pacemaker: No - PULMONARY Hx Respiratory Disorders: Yes Hx Pneumonia: Yes - NEUROLOGICAL Hx Dizziness: Yes (vertigo) Hx Seizures: (pt denies) - HEENT Hx HEENT Problems: No - RENAL Hx Chronic Kidney Disease: No - ENDOCRINE/METABOLIC Hx Endocrine Disorders: No - HEMATOLOGICAL/ONCOLOGICAL Hx Blood Disorders: No - INTEGUMENTARY Hx Dermatological Problems: Yes Other/Comment: left side facial swelling ,L periorbital swelling on and off x 2 yrs - MUSCULOSKELETAL/RHEUMATOLOGICAL Hx Musculoskeletal Disorders: Yes (chronic r knee pain x 2 yrs) Hx Back Pain: Yes (chronic) Hx Falls: Yes (past) Hx Unsteady Gait: Yes - GASTROINTESTINAL Hx Gastrointestinal Disorders: Yes Other/Comment: 25 lb weight loss in 2 years due to poor appetite due to facial swelling, difficulty eating has to chew right side3 - GENITOURINARY/GYNECOLOGICAL Hx Genitourinary Disorders: Yes (mammo 01/17/17) Other/Comment: fibroids removed - PSYCHIATRIC Hx Psychophysiologic Disorder: Yes Hx Anxiety: Yes Hx Depression: Yes Hx Substance Use: No - SURGICAL HISTORY Hx Surgeries: Yes Hx Cardiac Catheterization: Yes (01/17/14 +stress test cath neg) Other/Comment: benign r breast lumpectomy age 23, r shoulder growth removed, fibroids removed - ANESTHESIA Hx Anesthesia: Yes Hx Anesthesia Reactions: No Hx Malignant Hyperthermia: No Meds Allergies/Adverse Reactions: Allergies Allergy/AdvReac Type Severity Reaction Status Date / Time latex Allergy SWELLING Verified 02/28/16 11:46 - Medications Medications: Current Medications Atorvastatin Calcium (Lipitor) 40 mg PO QPM NGUYEN Clonazepam (Klonopin) 1 mg PO TID NGUYEN PRN Reason: Protocol Last Admin: 11/30/17 13:56 Dose: 1 mg Vancomycin HCl (Vancomycin 1gm) 1 gm in 250 mls @ 167 mls/hr IVPB Q12H NGUYEN PRN Reason: Protocol Last Admin: 11/30/17 06:24 Dose: 167 mls/hr Piperacillin Sod/Tazobactam Sod (Zosyn 3.375 In Ns 100ml) 100 mls @ 200 mls/hr IVPB Q6 NGUYEN PRN Reason: Protocol Stop: 12/07/17 00:01 Last Admin: 11/30/17 12:33 Dose: 200 mls/hr Ibuprofen (Motrin Tab) 600 mg PO TID NGUYEN Lidocaine HCl (Lidocaine 4% 50 Ml Topical (Or)) 0 ml TOP PREOP NGUYEN Stop: 11/30/17 16:00 Nortriptyline HCl (Pamelor) 10 mg PO QPM NGUYEN Oxycodone/Acetaminophen (Percocet 5/325 Mg Tab) 1 tab PO Q4H PRN PRN Reason: Pain, moderate (4-7) Stop: 12/02/17 19:26 Last Admin: 11/30/17 00:04 Dose: 1 tab Pantoprazole Sodium (Protonix Ec Tab) 40 mg PO 0600 [facility] Last Admin: 11/30/17 06:14 Dose: 40 mg Quetiapine Fumarate (Seroquel Xr) 300 mg PO HS [facility] Last Admin: 11/29/17 23:24 Dose: 300 mg Physical Exam - Constitutional Appears: Well, Non-toxic - Head Exam Head Exam: ATRAUMATIC - Eye Exam Eye Exam: EOMI, Normal appearance, PERRL Pupil Exam: NORMAL ACCOMODATION Additional comments: Ears: canals patent Nose: no rhinitis Throat: MMM, Patient has multiple dental caries with tooth root exposure both upper and lower dentition. pt has swelling and pain left premaxilla area and buccal gingival area. - Neck Exam Neck exam: Negative for: Lymphadenopathy - Respiratory Exam Respiratory Exam: NORMAL BREATHING PATTERN - Skin Skin Exam: Erythema, Warm Additional comments: swelling left cheek with erythema and eye closure Results - Vital Signs Recent Vital Signs: Last Vital Signs Temp 98 F 11/30/17 15:05 Pulse 87 11/30/17 15:05 Resp 18 11/30/17 15:05 BP 125/87 11/30/17 15:05 Pulse Ox 100 11/30/17 15:05 - Labs Result Diagrams: 11/30/17 11:20 11/30/17 11:20 Labs: Laboratory Results - last 24 hr 11/30/17 11/30/17 11:20 11:20 WBC 7.5 RBC 4.00 Hgb 9.6 L Hct 31.4 L MCV 78.5 L MCH 24.0 L MCHC 30.6 L RDW 15.1 H Plt Count 234 MPV 10.8 Gran % 60.1 Lymph % (Auto) 24.2 [place] % (Auto) 8.7 H Eos % (Auto) 6.5 H Baso % (Auto) 0.5 Gran # 4.51 Lymph # (Auto) 1.8 [place] # (Auto) 0.7 H Eos # (Auto) 0.5 Baso # (Auto) 0.04 Sodium 141 Potassium 3.9 Chloride 108 H Carbon Dioxide 27 Anion Gap 10 BUN 11 Creatinine 0.8 Est GFR ( Amer) > 60 Est GFR (Non-Af Amer) > 60 Random Glucose 93 Calcium 9.2 - Impressions Impression: CT: reviewed and premaxilla abscess left side noted Assessment & Plan (1) Dental abscess Status: Acute (2) Facial cellulitis Status: Acute (3) Periorbital cellulitis of left eye Status: Acute (4) Altered mental status, unspecified Status: Acute (5) Dehydration Status: Acute (6) Encephalopathy Status: Acute (7) Fall Status: Acute (8) Rhabdomyolysis Status: Acute (9) Toxic metabolic encephalopathy Status: Acute Priority: Medium (10) UTI (urinary tract infection) Status: Acute - Assessment and Plan (Free Text) Plan: Procedure performed: After informed consent obtained from patient and nurse countersigned note. Upper buccal area on the left was anesthetized with lidocaine 2% and 11 blade used to open premaxillary space. Purulence expressed and cultured, scissor used to further open abscess pocket. Pt tolerated procedure well. Pt to be continued on IV abx and eventually switched to orals. Pt to f/u at [facility] for full dental extraction. - Date & Time Date: 11/30/17 Time: 15:39
--- NOTE | 2017-11-30 17:01 | CP.PCM.CON ---
History of Present Illness - History of Present Illness History of Present Illness: 57 year old female with PMH of anxiety, depression, S/P fibroid removal, history of dental caries came in to [facility] because of worsening left sided facial pain and swelling for the past 3 days. The patient apparently saw a dentist yesterday and was given antibiotics but because of the continued swelling of the face she came to the ED. She denies fever or chills, no nausea or vomiting, no abdominal pain, no headache, no bloody taste in the mouth, no discharge from the mouth, no diarrhea, no dysuria. CT scan of the maxillofacial area showed preseptal cellulitis of the left side, as well as possible dental abscesses in the left maxillary area. Infectious Diseases consult is requested to further evaluate and manage. Review of Systems - Review of Systems All systems: reviewed and no additional remarkable complaints except (as per HPI ) Past Patient History - Infectious Disease Hx of Infectious Diseases: None - Tetanus Immunizations Tetanus Immunization: Unknown - Past Social History Smoking Status: Former Smoker - CARDIAC Hx Cardiac Disorders: Yes (cp, hypotension) Hx Angina: Yes Hx Hypercholesterolemia: Yes Hx Pacemaker: No - PULMONARY Hx Respiratory Disorders: Yes Hx Pneumonia: Yes - NEUROLOGICAL Hx Dizziness: Yes (vertigo) Hx Seizures: (pt denies) - HEENT Hx HEENT Problems: No - RENAL Hx Chronic Kidney Disease: No - ENDOCRINE/METABOLIC Hx Endocrine Disorders: No - HEMATOLOGICAL/ONCOLOGICAL Hx Blood Disorders: No - INTEGUMENTARY Hx Dermatological Problems: Yes Other/Comment: left side facial swelling ,L periorbital swelling on and off x 2 yrs - MUSCULOSKELETAL/RHEUMATOLOGICAL Hx Musculoskeletal Disorders: Yes (chronic r knee pain x 2 yrs) Hx Back Pain: Yes (chronic) Hx Falls: Yes (past) Hx Unsteady Gait: Yes - GASTROINTESTINAL Hx Gastrointestinal Disorders: Yes Other/Comment: 25 lb weight loss in 2 years due to poor appetite due to facial swelling, difficulty eating has to chew right side3 - GENITOURINARY/GYNECOLOGICAL Hx Genitourinary Disorders: Yes (mammo 01/17/17) Other/Comment: fibroids removed - PSYCHIATRIC Hx Psychophysiologic Disorder: Yes Hx Anxiety: Yes Hx Depression: Yes Hx Substance Use: No - SURGICAL HISTORY Hx Surgeries: Yes Hx Cardiac Catheterization: Yes (01/17/14 +stress test cath neg) Other/Comment: benign r breast lumpectomy age 23, r shoulder growth removed, fibroids removed - ANESTHESIA Hx Anesthesia: Yes Hx Anesthesia Reactions: No Hx Malignant Hyperthermia: No Meds Allergies/Adverse Reactions: Allergies Allergy/AdvReac Type Severity Reaction Status Date / Time latex Allergy SWELLING Verified 02/28/16 11:46 - Medications Medications: Current Medications Vancomycin HCl (Vancomycin 1gm) 1 gm in 250 mls @ 167 mls/hr IVPB Q12H NGUYEN PRN Reason: Protocol Piperacillin Sod/Tazobactam Sod (Zosyn 3.375 In Ns 100ml) 100 mls @ 200 mls/hr IVPB Q6 NGUYEN PRN Reason: Protocol Stop: 12/07/17 00:01 Oxycodone/Acetaminophen (Percocet 5/325 Mg Tab) 1 tab PO Q4H PRN PRN Reason: Pain, moderate (4-7) Stop: 12/02/17 19:26 Physical Exam - Constitutional Appears: No Acute Distress, Chronically Ill - Head Exam Head Exam: NORMAL INSPECTION - ENT Exam Additional comments: left sided facial and periorbital swelling; dental caries with missing teeth on the maxillary and miandibular side, with poor dentition - Neck Exam Neck exam: Negative for: Meningismus - Respiratory Exam Respiratory Exam: Decreased Breath Sounds - Cardiovascular Exam Cardiovascular Exam: +S1, +S2 - GI/Abdominal Exam GI & Abdominal Exam: Soft. absent: Tenderness Results - Vital Signs Recent Vital Signs: Last Vital Signs Temp 97.8 F 11/29/17 21:10 Pulse 82 11/29/17 21:10 Resp 18 11/29/17 21:10 BP 130/54 L 11/29/17 21:10 Pulse Ox 96 11/29/17 20:52 - Labs Result Diagrams: 11/30/17 11:20 11/30/17 11:20 Assessment & Plan - Assessment and Plan (Free Text) Plan: Assessment left periorbital and preseptal cellulitis on the left side with probable dental abscess on the maxillary area anxiety and depression S/P fibroid removal Plan started Vancomycin and Zosyn pending blood cx, dental abscess cultures and will monitor clinically follow up ENT evaluation and plans
[2017-11-30] MEDS: Chlorhexidine 0.12% Oral Sol 480 ml Bot PO SCH (17:12)
[2017-11-30] MEDS: QUEtiapine 300 mg XR Tab PO SCH (21:12)
[2017-12-01] MEDS: Piperacillin/Tazobact 3.375 gm 100 ML IVPB SCH ×5 (00:54→23:25)
[2017-12-01] MEDS: Vancomycin 1gm in NS 250ml 1 GM/250 ML BAG IVPB SCH ×2 (05:58→18:03)
[2017-12-01] MEDS: Pantoprazole 40 mg EC Tab PO SCH (06:00)
[2017-12-01] MEDS: Chlorhexidine 0.12% Oral Sol 480 ml Bot PO SCH ×2 (10:23→20:51)
--- NOTE | 2017-12-01 18:06 | CP.PCM.PN ---
Subjective - Date & Time of Evaluation Date of Evaluation: 12/01/17 Time of Evaluation: 12:05 - Subjective Subjective: Feeling much better, had left maxillary dental abscess drained yesterday by ENT , no fevers, no nausea. Objective - Vital Signs/Intake and Output Vital Signs (last 24 hours): Temp Pulse Resp BP Pulse Ox 98 F 87 18 125/87 100 11/30/17 15:05 11/30/17 15:05 11/30/17 15:05 11/30/17 15:05 11/30/17 15:05 Intake and Output: 11/30/17 11/30/17 06:59 18:59 Intake Total 780 Balance 780 - Medications Medications: Current Medications Atorvastatin Calcium (Lipitor) 40 mg PO QPM NGUYEN Chlorhexidine Gluconate (Peridex) 15 ml PO BID NGUYEN Clonazepam (Klonopin) 1 mg PO TID NGUYEN PRN Reason: Protocol Last Admin: 11/30/17 13:56 Dose: 1 mg Vancomycin HCl (Vancomycin 1gm) 1 gm in 250 mls @ 167 mls/hr IVPB Q12H NGUYEN PRN Reason: Protocol Last Admin: 11/30/17 06:24 Dose: 167 mls/hr Piperacillin Sod/Tazobactam Sod (Zosyn 3.375 In Ns 100ml) 100 mls @ 200 mls/hr IVPB Q6 NGUYEN PRN Reason: Protocol Stop: 12/07/17 00:01 Last Admin: 11/30/17 12:33 Dose: 200 mls/hr Ibuprofen (Motrin Tab) 600 mg PO TID [facility] Last Admin: 11/30/17 15:37 Dose: Not Given Nortriptyline HCl (Pamelor) 10 mg PO QPM [facility] Oxycodone/Acetaminophen (Percocet 5/325 Mg Tab) 1 tab PO Q4H PRN PRN Reason: Pain, moderate (4-7) Stop: 12/02/17 19:26 Last Admin: 11/30/17 00:04 Dose: 1 tab Pantoprazole Sodium (Protonix Ec Tab) 40 mg PO 0600 [facility] Last Admin: 11/30/17 06:14 Dose: 40 mg Quetiapine Fumarate (Seroquel Xr) 300 mg PO HS [facility] Last Admin: 11/29/17 23:24 Dose: 300 mg - Labs Labs: 11/30/17 11:20 11/30/17 11:20 - Constitutional Appears: Chronically Ill - Head Exam Head Exam: NORMAL INSPECTION - ENT Exam ENT Exam: Mucous Membranes Moist Additional comments: poor dentition; decreased swelling and erythema over the left side of the face - Neck Exam Neck Exam: absent: Meningismus - Respiratory Exam Respiratory Exam: Decreased Breath Sounds - Cardiovascular Exam Cardiovascular Exam: +S1, +S2 - GI/Abdominal Exam GI & Abdominal Exam: Soft. absent: Tenderness Assessment and Plan - Assessment and Plan (Free Text) Plan: Assessment left periorbital and preseptal cellulitis on the left side with probable dental abscess on the maxillary area, S/P I and D POD #1, clinically improving anxiety and depression S/P fibroid removal Plan continue Vancomycin and Zosyn day 2; blood cx are negative, follow up final dental abscess culture result will continue to monitor clinically
[2017-12-01] MEDS: QUEtiapine 300 mg XR Tab PO SCH (22:04)
[2017-12-02] MEDS: Piperacillin/Tazobact 3.375 gm 100 ML IVPB SCH ×4 (05:33→23:19)
[2017-12-02] MEDS: Pantoprazole 40 mg EC Tab PO SCH (06:33)
[2017-12-02] MEDS: Vancomycin 1gm in NS 250ml 1 GM/250 ML BAG IVPB SCH ×2 (06:34→17:46)
--- NOTE | 2017-12-02 08:05 | PN ---
DATE: 12/01/2017 SUBJECTIVE: The patient is 57 years old who was having some dental procedure done day before yesterday. She woke up with left-sided swelling and her left eye was almost closed, so she came to emergency room for further evaluation. PHYSICAL EXAMINATION: GENERAL: She is awake, alert, oriented, communicative. She states she feels a lot better now. VITAL SIGNS: She is afebrile, pulse 56, respiration 18, blood pressure 160/90. LUNGS: Bilateral good airflow. No rhonchi or crackle. HEART: S1 and S2 audible. ABDOMEN: Soft, nontender. No rebound. No guarding. NEUROLOGIC: She is awake, alert, oriented, communicative. HEENT: Her left cheek swelling has significantly improved. She has been having infraorbital swelling, slight erythema. LABORATORY EXAMINATION: WBC is 7.5, hemoglobin 9.6, hematocrit 31.4, platelet of 234. Chemistry: Sodium 141, potassium 3.9, chloride 108, CO2 of 27, BUN 11, creatinine 0.8, blood sugar of 93. Blood cultures are negative. Maxillofacial CT showed left facial cellulitis including preseptal left orbital cellulitis due to beach attendant space abscess sitting in the left maxilla, smaller left apical abscess related to left maxillary tooth appears to be etiology. ASSESSMENT: 1. Left tooth abscess. 2. Left periorbital cellulitis. 3. Hypertension. 4. Chronic anemia. 5. History of anxiety disorder. PLAN: The patient is currently on vancomycin and Zosyn. I and D was done by ENT. Follow up cultures. Analgesic as needed. Continue her psych medication including Pamelor, Klonopin and Lyrica as needed. She is on Seroquel 300 at bedtime, we will continue that. She is on Zosyn and vanco. We will follow up the patient in a.m. El Salazar MD
[2017-12-02] MEDS: Chlorhexidine 0.12% Oral Sol 480 ml Bot PO SCH ×2 (10:24→20:32)
--- NOTE | 2017-12-02 13:17 | PN ---
DATE: 12/02/2017 SUBJECTIVE: The patient is 57 years old, seen and examined, doing a lot better. Able to eat. Swelling seems to be improving. PHYSICAL EXAMINATION: VITAL SIGNS: The patient is afebrile, pulse 73, respirations 18, blood pressure 98/63. LUNGS: Bilateral good airflow. No rhonchi or crackle. HEART: S1, S2 audible. ABDOMEN: Soft and nontender. No rebound, no guarding. NEUROLOGIC: The patient is awake, alert, oriented, and communicative. LABORATORY DATA: She has I and D done. Wound cultures are pending. Blood cultures are negative. ASSESSMENT: 1. Left-sided dental abscess, status post incision and drainage. 2. Periorbital cellulitis. 3. Hypertension. 4. Anxiety disorder. PLAN: Currently, the patient is on IV antibiotic. Awaiting I and D culture. Once culture is back, we will be able to determine which antibiotic she has to be discharged home on. El Salazar MD
--- NOTE | 2017-12-02 21:56 | PN ---
DATE: 12/02/2017 SUBJECTIVE: The patient is in bed in no acute distress, nontoxic. PHYSICAL EXAMINATION: VITAL SIGNS: Temperature of 97, blood pressure is 120/80, respiratory rate of 18. HEENT: Unremarkable. NECK: Supple. LUNGS: Have decreased breath sounds. HEART: Normal S1, S2. ABDOMEN: Soft, nontender. LABORATORY EXAMINATION: Reveals the blood cultures are no growth. Abscess culture is pending and review of orders reveals the patient to be on vancomycin and Zosyn. ASSESSMENT AND PLAN: A 57-year-old female seen earlier in 560, bed 1 with left periorbital and preseptal cellulitis left side with probable dental abscess maxillary area status post incision and drainage postop day #2. Awaiting for cultures. On vancomycin and Zosyn day #3. We will follow with you. Iron Quiñones MD
[2017-12-02 22:28] VITALS: O2SAT 96
[2017-12-02] MEDS: QUEtiapine 300 mg XR Tab PO SCH (23:20)
[2017-12-03] MEDS: Vancomycin 1gm in NS 250ml 1 GM/250 ML BAG IVPB SCH (05:50)
[2017-12-03] MEDS: Pantoprazole 40 mg EC Tab PO SCH (05:51)
[2017-12-03] MEDS: Piperacillin/Tazobact 3.375 gm 100 ML IVPB SCH (05:51)
[2017-12-03 09:07] VITALS: BP 120/81; PULSE 56; RESP 20; TEMP 98
[2017-12-03] MEDS: Chlorhexidine 0.12% Oral Sol 480 ml Bot PO SCH (10:31)
--- NOTE | 2017-12-03 12:42 | CP.PCM.PN ---
Subjective - Date & Time of Evaluation Date of Evaluation: 12/03/17 Time of Evaluation: 12:40 - Subjective Subjective: pt seen and examined pt feels much better after I&D and iv antibiotics, dec pain and swelling Objective - Vital Signs/Intake and Output Vital Signs (last 24 hours): Temp Pulse Resp BP Pulse Ox 98 F 56 L 20 120/81 96 12/03/17 06:00 12/03/17 06:00 12/03/17 06:00 12/03/17 06:00 12/03/17 06:00 - Medications Medications: Current Medications Atorvastatin Calcium (Lipitor) 40 mg PO QPM [facility] Last Admin: 12/02/17 17:45 Dose: 40 mg Chlorhexidine Gluconate (Peridex) 15 ml PO BID [facility] Last Admin: 12/03/17 10:31 Dose: Not Given Clonazepam (Klonopin) 1 mg PO TID [facility] PRN Reason: Protocol Last Admin: 12/03/17 10:31 Dose: 1 mg Vancomycin HCl (Vancomycin 1gm) 1 gm in 250 mls @ 167 mls/hr IVPB Q12H NGUYEN PRN Reason: Protocol Last Admin: 12/03/17 05:50 Dose: 167 mls/hr Piperacillin Sod/Tazobactam Sod (Zosyn 3.375 In Ns 100ml) 100 mls @ 200 mls/hr IVPB Q6 NGUYEN PRN Reason: Protocol Stop: 12/07/17 00:01 Last Admin: 12/03/17 05:51 Dose: 200 mls/hr Ibuprofen (Motrin Tab) 600 mg PO TID [facility] Last Admin: 12/03/17 10:31 Dose: 600 mg Nortriptyline HCl (Pamelor) 10 mg PO QPM [facility] Last Admin: 12/02/17 17:45 Dose: 10 mg Pantoprazole Sodium (Protonix Ec Tab) 40 mg PO 0600 [facility] Last Admin: 12/03/17 05:51 Dose: 40 mg Quetiapine Fumarate (Seroquel Xr) 300 mg PO HS [facility] Last Admin: 12/02/17 23:20 Dose: 300 mg - Labs Labs: 11/30/17 11:20 11/30/17 11:20 - Head Exam Head Exam: ATRAUMATIC, NORMAL INSPECTION - Eye Exam Eye Exam: Normal appearance Pupil Exam: NORMAL ACCOMODATION - ENT Exam ENT Exam: Mucous Membranes Moist Additional comments: Decreased facial swelling and intraoral swelling/pain Assessment and Plan (1) Dental abscess Status: Acute (2) Facial cellulitis Status: Acute (3) Periorbital cellulitis of left eye Status: Acute (4) Altered mental status, unspecified Status: Acute (5) Dehydration Status: Acute (6) Encephalopathy Status: Acute (7) Fall Status: Acute (8) Rhabdomyolysis Status: Acute (9) Toxic metabolic encephalopathy Status: Acute (10) UTI (urinary tract infection) Status: Acute - Assessment and Plan (Free Text) Plan: Continue Abx treatment IN vs. Out patient (PO)_patient also to see dental clinic to have teeth extracted
--- NOTE | 2017-12-03 14:20 | CP.PCM.PN ---
Subjective - Date & Time of Evaluation Date of Evaluation: 12/03/17 Time of Evaluation: 11:40 - Subjective Subjective: Patient to be discharged today, no fevers, feeling much better, no more pain the face and teeth, no nausea or diarrhea. Objective - Vital Signs/Intake and Output Vital Signs (last 24 hours): Temp Pulse Resp BP Pulse Ox 98 F 56 L 20 120/81 96 12/03/17 06:00 12/03/17 06:00 12/03/17 06:00 12/03/17 06:00 12/03/17 06:00 - Labs Labs: 11/30/17 11:20 11/30/17 11:20 - Constitutional Appears: No Acute Distress, Chronically Ill - Head Exam Head Exam: NORMAL INSPECTION - Eye Exam Eye Exam: Normal appearance - ENT Exam ENT Exam: Mucous Membranes Moist Additional comments: poor dentition - Neck Exam Neck Exam: absent: Meningismus - Respiratory Exam Respiratory Exam: Decreased Breath Sounds - Cardiovascular Exam Cardiovascular Exam: +S1, +S2 - GI/Abdominal Exam GI & Abdominal Exam: Soft. absent: Tenderness Assessment and Plan - Assessment and Plan (Free Text) Plan: Assessment left periorbital and preseptal cellulitis on the left side with probable dental abscess on the maxillary area, S/P I and D POD #3, clinically improving anxiety and depression S/P fibroid removal Plan on Vancomycin and Zosyn day 4; blood cx are negative, dental abscess culture showing gram positive cocci and yeast (but yeast is probably more of colonization) - can switch to PO Augmentin for another 7 days with outpatient follow up with PMD and dentist - discussed with patient
--- NOTE | 2017-12-04 17:58 | DS ---
HISTORY OF PRESENT ILLNESS: The patient is 57 years old who has been dealing with her dentist who has been giving her medications and antibiotics, and she has caries of her multiple teeth. The patient came with left cheek swelling with periorbital swelling and redness. She was given IV antibiotics, ENT was called. I and D was done. The patient responded very well to antibiotics. ID was consulted. She is able to chew her food, doing well. No fever, no chills. No nausea or vomiting. No diarrhea. PHYSICAL EXAMINATION: VITAL SIGNS: She is afebrile, pulse 66, respirations 20, blood pressure 120/81. LUNGS: Bilateral good airflow. No rhonchi or crackle. HEART: S1 and S2 audible. ABDOMEN: Soft. Nontender. No rebound. No guarding. NEUROLOGICAL: The patient is awake, alert, oriented, and communicative. ASSESSMENT: 1. Left periorbital cellulitis. 2. Dental abscess, status post incision and drainage. 3. History of depression. 4. Anxiety disorder. 5. Hyperlipidemia. PLAN: The patient is being discharged home on Augmentin 875 twice a day. She is advised to follow up with her dentist and she will follow with me in a week or so. El Salazar MD
== END 2017-12-03 13:42 | disposition home or self-care (01) | DRG 157 ==
LOC: ED 12:04 → ERH 19:24 → 5RNO 21:04
PROVIDERS: ADMIT Internal Medicine Medical Oncology; ATTEND Internal Medicine
PROC: 0W933ZZ Drainage of Oral Cavity and Throat, Percutaneous Approach (ICD-10-PCS; principal; 2017-11-30)
DX: K04.7 Periapical abscess without sinus (principal); L03.211 Cellulitis of face; L03.213 Periorbital cellulitis; G92 Toxic encephalopathy; M62.82 Rhabdomyolysis; N39.0 Urinary tract infection, site not specified; E86.0 Dehydration; D50.9 Iron deficiency anemia, unspecified; I10 Essential (primary) hypertension; K02.9 Dental caries, unspecified; E78.00 Pure hypercholesterolemia, unspecified; F41.9 Anxiety disorder, unspecified; F32.9 Major depressive disorder, single episode, unspecified; Z87.891 Personal history of nicotine dependence

== ENCOUNTER 2018-05-12 09:43 | Emergency (ER) | payer MEDICARE, OTHER ==
[2018-05-12 09:44] VITALS: BMI 25.6
[2018-05-12 10:25] VITALS: RESP 18; TEMP 98.2
[2018-05-12] MEDS ORDERED: Oxycodone/Acetaminophen 5/325 mg Tab PO STA (10:41)
--- NOTE | 2018-05-12 10:45 | ED PDOC ---
Arrival/HPI - General Chief Complaint: Finger,Hand,&Wrist Historian: Patient - History of Present Illness Narrative History of Present Illness (Text): 05/12/18 10:42 58 year old female, with past medical history of osteoarthritis, presents to the Ed for evaluation of worsening left hand pain since past 3 days. Patient informs taking steroids prescribed by her PMD and ibuprofen this morning with no improvement to symptoms. Patient reports ability to flex her fingers but with pain. Patient denies any trauma or injury to the area. Patient denies any other somatic complaints. Patient denies any fevers, chills, headache, dizziness, chest pain, shortness of breath, dyspnea on exertion, cough, abdominal pain, nausea, vomiting, diarrhea, back pain, neck pain, or any other complaints. Patient reports she is right hand dominant. PMD: Dr. Salazar Time/Duration: < week Symptom Onset: Gradual Symptom Course: Unchanged Activities at Onset: Light Context: Home Past Medical History - Provider Review Nursing Documentation Reviewed: Yes - Past History Past History: Non-Contributing - Infectious Disease Hx of Infectious Diseases: None - Tetanus Immunization Tetanus Immunization: Unknown - Cardiac Hx Cardiac Disorders: Yes (cp, hypotension) Hx Angina: Yes Hx Pacemaker: No - Pulmonary Hx Respiratory Disorders: Yes Hx Pneumonia: Yes - Neurological Hx Dizziness: Yes (vertigo) Hx Seizures: (pt denies) - HEENT Hx HEENT Disorder: No - Renal Hx Renal Disorder: No - Endocrine/Metabolic Hx Endocrine Disorders: No - Hematological/Oncological Hx Blood Disorders: No - Integumentary Hx Dermatological Disorder: Yes Other/Comment: left side facial swelling ,L periorbital swelling on and off x 2 yrs - Musculoskeletal/Rheumatological Hx Musculoskeletal Disorders: Yes (chronic r knee pain x 2 yrs) Hx Back Pain: Yes (chronic) Hx Falls: Yes (past) Hx Unsteady Gait: Yes - Gastrointestinal Hx Gastrointestinal Disorders: Yes Other/Comment: 25 lb weight loss in 2 years due to poor appetite due to facial swelling, difficulty eating has to chew right side3 - Genitourinary/Gynecological Hx Genitourinary Disorders: Yes (mammo 01/17/17) Other/Comment: fibroids removed - Psychiatric Hx Psychophysiologic Disorder: Yes Hx Anxiety: Yes Hx Depression: Yes Hx Substance Use: No - Surgical History Hx Cardiac Catheterization: Yes (01/17/14 +stress test cath neg) Other/Comment: benign r breast lumpectomy age 23, r shoulder growth removed, fibroids removed - Anesthesia Hx Anesthesia: Yes Hx Anesthesia Reactions: No Hx Malignant Hyperthermia: No - Suicidal Assessment Feels Threatened In Home Enviroment: No Family/Social History - Physician Review Nursing Documentation Reviewed: Yes Family/Social History: Unknown Family HX Smoking Status: Former Smoker Hx Alcohol Use: No Hx Substance Use: No Hx Substance Use Treatment: No Allergies/Home Meds Allergies/Adverse Reactions: Allergies latex Allergy (Verified 02/28/16 11:46) SWELLING Home Medications: Home Meds Medication Instructions Recorded Confirmed Atorvastatin [Lipitor] 40 mg PO QPM 09/03/17 11/29/17 Clonazepam [Klonopin] 1 mg PO TID 09/03/17 11/29/17 Estradiol [Vivelle-Dot] 0.0375 mg TD QWK 09/03/17 11/29/17 Nortriptyline HCl [Pamelor] 10 mg PO QPM 09/03/17 11/29/17 Omeprazole 20 mg PO DAILY 09/03/17 11/29/17 QUEtiapine [SEROquel] 300 mg PO HS 09/03/17 11/29/17 Review of Systems - Physician Review All systems were reviewed & negative as marked: Yes - Review of Systems Constitutional: absent: Fevers Respiratory: absent: SOB, Cough Cardiovascular: absent: Chest Pain Gastrointestinal: absent: Abdominal Pain, Diarrhea, Nausea, Vomiting Genitourinary Female: absent: Dysuria, Urine Output Changes Musculoskeletal: Arthralgias (Left hand pain). absent: Back Pain, Neck Pain Skin: absent: Rash Neurological: absent: Headache, Dizziness Psychiatric: absent: Anxiety Physical Exam Vital Signs Reviewed: Yes Vital Signs Temp Pulse Resp BP Pulse Ox 05/12/18 09:45 98.2 F 83 18 118/78 98 Temperature: Afebrile Blood Pressure: Normal Pulse: Regular Respiratory Rate: Normal Appearance: Positive for: Well-Appearing, Non-Toxic, Comfortable Pain Distress: None Mental Status: Positive for: Alert and Oriented X 3 - Systems Exam Head: Present: Atraumatic, Normocephalic Pupils: Present: PERRL Extroacular Muscles: Present: EOMI Conjunctiva: Present: Normal Respiratory/Chest: Present: Clear to Auscultation, Good Air Exchange. No: Respiratory Distress, Accessory Muscle Use Cardiovascular: Present: Regular Rate and Rhythm, Normal S1, S2. No: Murmurs Upper Extremity: Present: NORMAL PULSES (distal pulses intact), Tenderness (to anatomical snuffbox, able to extend /flex left wrist, able to make OK sign ), Swelling (Swelling noted at left wrist). No: Cyanosis Lower Extremity: Present: Normal Inspection. No: Edema Neurological: Present: GCS=15, CN II-XII Intact, Speech Normal Skin: Present: Warm, Dry, Normal Color. No: Rashes Psychiatric: Present: Alert, Oriented x 3, Normal Insight, Normal Concentration Medical Decision Making ED Course and Treatment: 05/12/18 10:32 Impression: 58 year old female presents to the ED for evaluation of left hand pain. Differential Diagnosis included but are not limited to: -- Arthritis -- Tendinitis -- Carpal Tunnel Syndrome Plan: -- Percocet -- Prednisone -- X-ray of Left hand -- Reassess and disposition Prior Visits: Notes and results from previous visits were reviewed. Progress Notes: 05/12/18 11:23 Hand XR shows no evidence of fracture or acute injury. Patient reassessed and feels the same. Updated imaging findings given to patient. - RAD Interpretation Narrative RAD Interpretations (Text): 05/12/18 11:59 X-ray of left hand reviewed by radiologist, shows: FINDINGS: BONES: No acute fracture. 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 There is also osteoarthritis at the articulation between the multangular is and the scaphoid. Normal carpal alignment is maintained. The remaining articulations are intact. The radiocarpal articulation is unremarkable. Interphalangeal joints and metacarpal phalangeal joints are unremarkable. SOFT TISSUES: Normal. OTHER FINDINGS: None. 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 Radiology Orders: 05/12/18 10:31 HAND LEFT 3 VIEWS ROUTINE [RAD] Stat Concrete Block Molder: Radiologist - Scribe Statement The provider has reviewed the documentation as recorded by the Scribe Amarilis Person. All medical record entries made by the Scribe were at my direction and personally dictated by me. I have reviewed the chart and agree that the record accurately reflects my personal performance of the history, physical exam, medical decision making, and the department course for this patient. I have also personally directed, reviewed, and agree with the discharge instructions and disposition. Disposition/Present on Arrival - Present on Arrival Any Indicators Present on Arrival: No History of DVT/PE: No History of Uncontrolled Diabetes: No Urinary Catheter: No History of Decub. Ulcer: No History Surgical Site Infection Following: None - Disposition Have Diagnosis and Disposition been Completed?: Yes Diagnosis: Wrist swelling Disposition: HOME/ ROUTINE Disposition Time: 11:46 Patient Plan: Discharge Patient Problems: Current Active Problems Problem Status Onset Wrist swelling Acute Condition: IMPROVED Discharge Instructions (ExitCare): Muscle Strain Print Language: ALB[place]IAN Additional Instructions: All medical record entries made by the Scribe were at my direction and personally dictated by me. I have reviewed the chart and agree that the record accurately reflects my personal performance of the history, physical exam, medical decision making, and the department course for this patient. I have also personally directed, reviewed, and agree with the discharge instructions and disposition. Please follow up with Dr. Salazar in 1-2 days DO NOT take Tramadol and Elavil(nortryptiline) within 6 hours of each other Prescriptions: Methylprednisolone [Medrol Dose Pack (21 tabs)] 4 mg PO DAILY #21 mg traMADol [Ultram] 50 mg PO Q6H #4 tab Referrals: El Salazar MD [Family Provider] - Follow up with primary Forms: [employer] ([place]), WORK NOTE
--- NOTE | 2018-05-12 11:52 | RAD ---
PROCEDURE: Left Hand Radiographs. HISTORY: hand pain COMPARISON: None. FINDINGS: BONES: No acute fracture. 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 There is also osteoarthritis at the articulation between the multangular is and the scaphoid. Normal carpal alignment is maintained. The remaining articulations are intact. The radiocarpal articulation is unremarkable. Interphalangeal joints and metacarpal phalangeal joints are unremarkable. SOFT TISSUES: Normal. OTHER FINDINGS: None. 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
[2018-05-12 12:23] VITALS: BP 128/73; PULSE 79; O2SAT 99
== END 2018-05-12 12:21 | disposition home or self-care (01) ==
LOC: ED 09:43
DX: M79.89 Other specified soft tissue disorders (principal)
CPT/HCPCS: 73130; 96372; 99283; J1885